=== PATIENT | male | born 1935 | race Caucasian/White ===

== ENCOUNTER → 2019-01-03 | Outpatient (CLI) | payer MEDICARE | END | disposition home or self-care (01) | LOC: RADPETMAIN 08:11 | PROVIDERS: ATTEND Family Medicine | DX: Z53.9 Procedure and treatment not carried out, unspecified reason (principal) ==

== ENCOUNTER 2020-01-19 03:31 | Inpatient (IN) | payer MEDICARE ==
--- NOTE | 2020-01-19 03:38 | ED ---
General Adult HPI - General Stated complaint: Weakness Time Seen by Provider: 01/19/20 03:37 - History of Present Illness Initial comments: Davis is a very pleasant, morbidly obese 84-year-old gentleman with history of hypertension, diabetes and peripheral neuropathy who presents to the ER today for evaluation of generalized weakness and numbness of the bilateral lower extremities. Patient reports he saw his primary care physician last week he was noted to be hypertensive then and his antihypertensive medication doses were increased. Patient reports that since then he's just been feeling somewhat fuzzy lightheaded, very weak. He states that tonight he got up to walk felt very weak his family helped lower him to the ground. They're concerned about his generalized weakness and worsening numbness in the feet which prompted them to call EMS for further evaluation. Patient denies any recent illness, fevers, chills, cough, chest pain. He reports that he can't feel his feet when he is walking and this is what causes this problem. This seems to be worsening recently. - Related Data Home Medications Medication Instructions Recorded Confirmed Aspirin [Adult Low Dose Aspirin EC] 81 mg PO DAILY 06/22/15 06/22/15 Celecoxib [CeleBREX] 200 mg PO DAILY 06/22/15 06/27/15 Ergocalciferol [Vitamin D2] 50,000 unit PO Q7D 06/22/15 06/22/15 Finasteride [Proscar] 5 mg PO DAILY 06/22/15 06/27/15 Omeprazole 40 mg PO AC-BRKFST 06/22/15 06/27/15 Simvastatin [Zocor] 40 mg PO HS 06/22/15 06/27/15 buPROPion HCL [Wellbutrin XL] 150 mg PO DAILY 06/22/15 06/27/15 Allergies Allergy/AdvReac Type Severity Reaction Status Date / Time Penicillins Allergy Anaphylaxis Verified 01/19/20 07:05 Review of Systems ROS Statement: Those systems with pertinent positive or pertinent negative responses have been documented in the HPI. ROS Other: All systems not noted in ROS Statement are negative. Past Medical History Past Medical History: Cancer, GERD/Reflux, Hyperlipidemia, Osteoarthritis (OA) Additional Past Medical History / Comment(s): Skin CA History of Any Multi-Drug Resistant Organisms: None Reported Past Surgical History: Hernia Repair (Hiatal hernia repair), Joint Replacement, Orthopedic Surgery Additional Past Surgical History / Comment(s): EGD Past Anesthesia/Blood Transfusion Reactions: No Reported Reaction Past Alcohol Use History: Rare - Past Family History Mother Family Medical History: No Reported History General Exam - General Exam Comments Initial Comments: Physical Exam GENERAL: Obese male in no acute distress HENT: Normocephalic, Atraumatic. EYES: PERRL, EOMI PULMONARY: Unlabored respirations. No audible rales rhonchi or wheezing was noted. CARDIOVASCULAR: There is a regular rate and rhythm without any murmurs gallops or rubs. ABDOMEN: Obese Soft and nontender with normal bowel sounds. SKIN: Chronic venous stasis lower extremities Chronic ulcer RLE : Buried penis NEUROLOGIC: Patient is alert and oriented to person, place, states its "almost halloween" knows president Moving all extremities spontaneously Decreased sensation bilateral lower extremities MUSCULOSKELETAL: Lower extremity edema PSYCHIATRIC: Normal psychiatric evaluation. Course Vital Signs 01/19/20 01/19/20 01/19/20 03:34 04:00 05:00 Temperature 98.1 F Pulse Rate 98 78 76 Respiratory 18 18 18 Rate Blood Pressure 92/76 128/79 105/65 O2 Sat by Pulse 96 95 95 Oximetry 01/19/20 06:00 Temperature Pulse Rate 79 Respiratory 18 Rate Blood Pressure 130/83 O2 Sat by Pulse 95 Oximetry EKG Findings - EKG Comments: EKG Findings:: EKG was obtained due to complaint of generalized weakness, EKG was obtained at 3:41 AM, rate is 93, rhythm is sinus, normal axis, MO is prolonged at 218, QRS is 94, QTC is 447 there are no acute ST elevations or depressions no evidence of acute ischemia or infarction. Medical Decision Making - Medical Decision Making Patient was seen and evaluated, history is obtained from the patient and EMS 84-year-old gentleman presenting with worsening generalized weakness, peripheral neuropathy reports complete numbness in his feet difficulty walking at home Physical exam is relatively unremarkable this is a morbidly obese male with stocking glove peripheral neuropathy Labs with acute kidney injury, poorly controlled diabetes, mildly elevated lactic acid likely related to patient taking metformin, no signs of infection Discussed with patient options for remaining in the observation unit for evaluation by physical therapy versus discharge home. At this time patient family don't feel he is safe for discharge home and given the patient's morbid obesity and difficulty with ambulation patient will be placed in observation unit. Patient care was discussed with Dr. Butler who agrees with plan for observation - Lab Data Result diagrams: 01/19/20 03:41 01/19/20 04:24 Lab Results 01/19/20 01/19/20 01/19/20 Range/Units 03:41 03:41 03:41 WBC 10.3 (3.8-10.6) k/uL RBC 5.02 (4.30-5.90) m/uL Hgb 15.0 (13.0-17.5) gm/dL Hct 47.1 (39.0-53.0) % MCV 93.7 (80.0-100.0) fL MCH 29.9 (25.0-35.0) pg MCHC 31.9 (31.0-37.0) g/dL RDW 14.7 (11.5-15.5) % Plt Count 228 (150-450) k/uL Neutrophils % 78 % Lymphocytes % 12 % Monocytes % 5 % Eosinophils % 4 % Basophils % 0 % Neutrophils # 8.0 H (1.3-7.7) k/uL Lymphocytes # 1.2 (1.0-4.8) k/uL Monocytes # 0.5 (0-1.0) k/uL Eosinophils # 0.4 (0-0.7) k/uL Basophils # 0.0 (0-0.2) k/uL PT 10.0 (9.0-12.0) sec INR 1.0 (<1.2) APTT 22.7 (22.0-30.0) sec Sodium (137-145) mmol/L Potassium (3.5-5.1) mmol/L Chloride (98-107) mmol/L Carbon Dioxide (22-30) mmol/L Anion Gap mmol/L BUN (9-20) mg/dL Creatinine (0.66-1.25) mg/dL Est GFR (CKD-EPI)AfAm (>60 ml/min/1.73 sqM) Est GFR (CKD-EPI)NonAf (>60 ml/min/1.73 sqM) Glucose (74-99) mg/dL Lactic Ac Sepsis Rflx Plasma Lactic Acid Blaine (0.7-2.0) mmol/L Calcium (8.4-10.2) mg/dL Magnesium (1.6-2.3) mg/dL Total Bilirubin (0.2-1.3) mg/dL AST (17-59) U/L ALT (4-49) U/L Alkaline Phosphatase (38-126) U/L Creatine Kinase (55-170) U/L Troponin I (0.000-0.034) ng/mL Total Protein (6.3-8.2) g/dL Albumin (3.5-5.0) g/dL TSH (0.465-4.680) mIU/L Urine Color Yellow Urine Appearance Clear (Clear) Urine pH 6.0 (5.0-8.0) Ur Specific [place] 1.018 (1.001-1.035) Urine Protein Negative (Negative) Urine Glucose (UA) Negative (Negative) Urine Ketones Negative (Negative) Urine Blood Negative (Negative) Urine Nitrite Negative (Negative) Urine Bilirubin Negative (Negative) Urine Urobilinogen 2.0 (<2.0) mg/dL Ur Leukocyte Esterase Negative (Negative) 01/19/20 01/19/20 01/19/20 Range/Units 03:41 03:41 04:12 WBC (3.8-10.6) k/uL RBC (4.30-5.90) m/uL Hgb (13.0-17.5) gm/dL Hct (39.0-53.0) % MCV (80.0-100.0) fL MCH (25.0-35.0) pg MCHC (31.0-37.0) g/dL RDW (11.5-15.5) % Plt Count (150-450) k/uL Neutrophils % % Lymphocytes % % Monocytes % % Eosinophils % % Basophils % % Neutrophils # (1.3-7.7) k/uL Lymphocytes # (1.0-4.8) k/uL Monocytes # (0-1.0) k/uL Eosinophils # (0-0.7) k/uL Basophils # (0-0.2) k/uL PT (9.0-12.0) sec INR (<1.2) APTT (22.0-30.0) sec Sodium (137-145) mmol/L Potassium (3.5-5.1) mmol/L Chloride (98-107) mmol/L Carbon Dioxide (22-30) mmol/L Anion Gap mmol/L BUN (9-20) mg/dL Creatinine (0.66-1.25) mg/dL Est GFR (CKD-EPI)AfAm (>60 ml/min/1.73 sqM) Est GFR (CKD-EPI)NonAf (>60 ml/min/1.73 sqM) Glucose (74-99) mg/dL Lactic Ac Sepsis Rflx Y Plasma Lactic Acid Blaine 2.9 H* (0.7-2.0) mmol/L Calcium (8.4-10.2) mg/dL Magnesium (1.6-2.3) mg/dL Total Bilirubin (0.2-1.3) mg/dL AST (17-59) U/L ALT (4-49) U/L Alkaline Phosphatase (38-126) U/L Creatine Kinase (55-170) U/L Troponin I <0.012 (0.000-0.034) ng/mL Total Protein (6.3-8.2) g/dL Albumin (3.5-5.0) g/dL TSH (0.465-4.680) mIU/L Urine Color Urine Appearance (Clear) Urine pH (5.0-8.0) Ur Specific [place] (1.001-1.035) Urine Protein (Negative) Urine Glucose (UA) (Negative) Urine Ketones (Negative) Urine Blood (Negative) Urine Nitrite (Negative) Urine Bilirubin (Negative) Urine Urobilinogen (<2.0) mg/dL Ur Leukocyte Esterase (Negative) 01/19/20 Range/Units 04:24 WBC (3.8-10.6) k/uL RBC (4.30-5.90) m/uL Hgb (13.0-17.5) gm/dL Hct (39.0-53.0) % MCV (80.0-100.0) fL MCH (25.0-35.0) pg MCHC (31.0-37.0) g/dL RDW (11.5-15.5) % Plt Count (150-450) k/uL Neutrophils % % Lymphocytes % % Monocytes % % Eosinophils % % Basophils % % Neutrophils # (1.3-7.7) k/uL Lymphocytes # (1.0-4.8) k/uL Monocytes # (0-1.0) k/uL Eosinophils # (0-0.7) k/uL Basophils # (0-0.2) k/uL PT (9.0-12.0) sec INR (<1.2) APTT (22.0-30.0) sec Sodium 133 L (137-145) mmol/L Potassium 4.5 (3.5-5.1) mmol/L Chloride 101 (98-107) mmol/L Carbon Dioxide 22 (22-30) mmol/L Anion Gap 10 mmol/L BUN 17 (9-20) mg/dL Creatinine 1.43 H (0.66-1.25) mg/dL Est GFR (CKD-EPI)AfAm 52 (>60 ml/min/1.73 sqM) Est GFR (CKD-EPI)NonAf 45 (>60 ml/min/1.73 sqM) Glucose 192 H (74-99) mg/dL Lactic Ac Sepsis Rflx Plasma Lactic Acid Blaine (0.7-2.0) mmol/L Calcium 9.1 (8.4-10.2) mg/dL Magnesium 1.9 (1.6-2.3) mg/dL Total Bilirubin 0.7 (0.2-1.3) mg/dL AST 28 (17-59) U/L ALT 17 (4-49) U/L Alkaline Phosphatase 85 (38-126) U/L Creatine Kinase 147 (55-170) U/L Troponin I (0.000-0.034) ng/mL Total Protein 6.7 (6.3-8.2) g/dL Albumin 4.0 (3.5-5.0) g/dL TSH 3.600 (0.465-4.680) mIU/L Urine Color Urine Appearance (Clear) Urine pH (5.0-8.0) Ur Specific [place] (1.001-1.035) Urine Protein (Negative) Urine Glucose (UA) (Negative) Urine Ketones (Negative) Urine Blood (Negative) Urine Nitrite (Negative) Urine Bilirubin (Negative) Urine Urobilinogen (<2.0) mg/dL Ur Leukocyte Esterase (Negative) Disposition Clinical Impression: Hyperglycemia due to type 2 diabetes mellitus, EMILIA (acute kidney injury), Peripheral neuropathy, Generalized weakness Disposition: ADMITTED IP TO THIS HOSP Condition: Stable Is patient prescribed a controlled substance at d/c from ED?: No Referrals: Elle Butler DO [Primary Care Provider] - 1-2 days
[2020-01-19 03:56] LABS: Basophils % (A) 0 %; Eosinophils # (A) 0.4 k/uL (0-0.7); Eosinophils % (A) 4 %; HCT 47.1 % (39.0-53.0); Lymphocytes # (A) 1.2 k/uL (1.0-4.8); Lymphocytes % (A) 12 %; MCH 29.9 pg (25.0-35.0); MCHC 31.9 g/dL (31.0-37.0); MCV 93.7 fL (80.0-100.0); Mean Platelet Volume 7.4; Monocytes # (A) 0.5 k/uL (0-1.0); Monocytes % (A) 5 %; Neutrophils % (A) 78 %; Platelet Count 228 k/uL (150-450); RBC 5.02 m/uL (4.30-5.90); RDW 14.7 % (11.5-15.5); WBC 10.3 k/uL (3.8-10.6)
--- NOTE | 2020-01-19 04:12 | XR ---
EXAM: XR Chest, 2 Views CLINICAL HISTORY: ITS.REASON XR Reason: Weakness TECHNIQUE: Frontal and lateral views of the chest. COMPARISON: No relevant prior studies available. FINDINGS/IMPRESSION: No focal consolidation, pleural effusion, or pneumothorax. Cardiomegaly. Calcified aorta. Severe degenerative changes of the left shoulder.
[2020-01-19 04:21] LABS: Partial Thromboplastin Time 22.7 sec (22.0-30.0)
[2020-01-19 04:49] LABS: Calcium 9.1 mg/dL (8.4-10.2); Magnesium 1.9 mg/dL (1.6-2.3); Potassium 4.5 mmol/L (3.5-5.1); Total Bilirubin 0.7 mg/dL (0.2-1.3); Total Protein 6.7 g/dL (6.3-8.2)
[2020-01-19 06:21] LABS: Appearance,Urine Clear (Clear); Bilirubin,Urine Negative (Negative); Blood,Urine Negative (Negative); Color,Urine Yellow; Glucose,Urine (UA) Negative (Negative); Ketones,Urine Negative (Negative); Leukocyte Esterase,Urine Negative (Negative); Nitrite,Urine Negative (Negative); Protein,Urine Negative (Negative); Specific Gravity,Urine 1.018 (1.001-1.035)
[2020-01-19] MEDS ORDERED: NALOXONE 0.4 MG/ML 1 ML VIAL IV PRN (07:05)
[2020-01-19 08:29] LABS: Glucose,Whole Blood 153 mg/dL (75-99)
[2020-01-19] MEDS: INSULIN ASPART (NovoLOG) 100 UNIT/ML VIAL SQ SCH ×4 (08:33→20:39)
[2020-01-19] MEDS ORDERED: lisinopriL 10 MG TAB PO SCH (09:15)
[2020-01-19] MEDS: ASPIRIN 81 MG PO SCH (09:45)
[2020-01-19] MEDS: PANTOPRAZOLE 40 MG TABLET PO SCH (09:45)
[2020-01-19] MEDS: HEPARIN SODIUM,PORCINE 5,000 UNIT/ML 1 ML VIAL SQ SCH ×2 (09:46→20:39)
[2020-01-19] MEDS: DULoxetine HCL 60 MG CAPSULE.DR PO SCH (09:50)
[2020-01-19] MEDS: GABAPENTIN 300 MG CAP PO SCH ×2 (11:12→20:39)
[2020-01-19 17:03] LABS: Glucose,Whole Blood 110 mg/dL (75-99)
[2020-01-19 18:18] LABS: Folate, Serum 16.1 ng/mL
[2020-01-19 20:21] LABS: Glucose,Whole Blood 204 mg/dL (75-99)
[2020-01-19] MEDS: ATORVASTATIN 20 MG TAB PO SCH (20:39)
--- NOTE | 2020-01-19 23:37 | P.HPIM ---
History of Present Illness H&P Date: 01/19/20 Chief Complaint: weakness Davis Wilde is an 84 yo M with PMH of T2DM, HTN, HLD who presented to [facility] [place] with worsening bilateral leg numbness and weakness. He reports he has been experiencing gradual and worsening lower extremity weakness but last week after his BP medications were adjusted his symptoms worsened. He feels his upper extremity strength is also diminished. He has not been able to ambulate as he cannot feel his feet and does not use any mobility aids at home. On presentation his vitals were stable, labs with Cr 1.4, glucose 190, CXR and EKG clear. Review of Systems All systems: negative Constitutional: Denies chills, Denies fever Eyes: denies blurred vision, denies pain Ears, nose, mouth and throat: Denies headache, Denies sore throat Cardiovascular: Denies chest pain, Denies shortness of breath Respiratory: Denies cough Gastrointestinal: Denies abdominal pain, Denies diarrhea, Denies nausea, Denies vomiting Musculoskeletal: Denies myalgias Integumentary: Denies pruritus, Denies rash Neurological: Reports numbness, Reports paresthesias, Reports weakness Psychiatric: Denies anxiety, Denies depression Endocrine: Denies fatigue, Denies weight change Past Medical History Past Medical History: Cancer, Diabetes Mellitus, GERD/Reflux, Hyperlipidemia, Hypertension, Osteoarthritis (OA), Prostate Disorder Additional Past Medical History / Comment(s): Recent UTI completed antibiotic, past UTIs, nephrolithiasis/pt passed stones on his own, BPH, skin CA with removals, NIDDM type II, neuropathy in feet recently diagnosed, arthritis in multiple joints/pinched nerve R shoulder with R arm limited ROM, benign colon polyps. History of Any Multi-Drug Resistant Organisms: None Reported Past Surgical History: Hernia Repair, Joint Replacement, Orthopedic Surgery Additional Past Surgical History / Comment(s): EGD, colonoscopies with benign polyps, multiple skin cancer removals, hiatal hernia repair, bilateral total knee arthroplasties, total R hip arthroplasty, bilateral cataract removals/lens implants. Past Anesthesia/Blood Transfusion Reactions: No Reported Reaction Smoking Status: Never smoker - Past Family History Mother Family Medical History: No Reported History Additional Family Medical History / Comment(s): Mother was healthy and lived to be 94 yrs old. Father Family Medical History: COPD Additional Family Medical History / Comment(s): Father at the age of 75 yrs of COPD. He was a smoker. Medications and Allergies Home Medications Medication Instructions Recorded Confirmed Type Aspirin [Adult Low Dose Aspirin EC] 81 mg PO DAILY 06/22/15 01/19/20 History Ergocalciferol [Vitamin D2] 50,000 unit PO WE 06/22/15 01/19/20 History Finasteride [Proscar] 5 mg PO DAILY 06/22/15 01/19/20 History Omeprazole 40 mg PO AC-BRKFST 06/22/15 01/19/20 History Simvastatin [Zocor] 40 mg PO HS 06/22/15 01/19/20 History buPROPion HCL [Wellbutrin XL] 150 mg PO DAILY 06/22/15 01/19/20 History Clotrimazole/Betameth Cream 1 applic TOPICAL DAILY 01/19/20 01/19/20 History [Lotrisone] DULoxetine HCL [Cymbalta] 60 mg PO DAILY 01/19/20 01/19/20 History Ipratropium Ware 0.06%Nasal 1 spray EA NOSTRIL DAILY 01/19/20 01/19/20 History [Atrovent Nasal 0.06%] Lisinopril [Prinivil] 10 mg PO DAILY 01/19/20 01/19/20 History Repaglinide [Prandin] 2 mg PO TID 01/19/20 01/19/20 History SILVER sulfADIAZINE Cream 1 applic TOPICAL DAILY 01/19/20 01/19/20 History [Silvadene 1% Cream] Sulfamethox-Tmp 800-160Mg [Bactrim 1 tab PO Q12HR 01/19/20 01/19/20 History DS 800-160 mg] sitaGLIPtin [Januvia] 50 mg PO DAILY 01/19/20 01/19/20 History traMADol HCL [Ultram] 50 mg PO Q6H PRN 01/19/20 01/19/20 History Allergies Allergy/AdvReac Type Severity Reaction Status Date / Time Penicillins Allergy Anaphylaxis Verified 01/19/20 07:05 Physical Exam Vitals: Vital Signs Temp Pulse Pulse Resp BP BP BP 01/19/20 20:28 98.1 F 84 18 116/60 01/19/20 12:56 97.6 F 76 18 122/73 10/20/20 11:30 80 17 119/61 20/20 11:00 80 16 20 10:30 84 16 100/58 20/20 10:00 80 16 120/78 20/20 09:53 86 18 120/78 20/20 09:30 94 16 105/80 20/20 09:00 77 16 123/67 20/20 08:30 75 16 128/74 20/20 08:15 98.7 F 78 18 128/74 20/20 08:00 76 16 133/75 01/18/20 07:30 81 16 109/82 20 06:00 79 18 130/83 20 05:00 76 18 105/65 20 04:00 78 18 128/79 20 03:34 98.1 F 98 18 92/76 Pulse Ox 01/19/20 20:28 95 01/19/20 12:56 97 20 11:30 98 20 11:00 97 20 10:30 96 20 10:00 96 20 09:53 97 20 09:30 97 20 09:00 99 20 08:30 97 20 08:15 96 20 08:00 96 01/18/20 07:30 97 20/20 06:00 95 01/18/20 05:00 95 20 04:00 95 20 03:34 96 Intake and Output 01/19/2020/20 01/20/20 14:59 22:59 06:59 Intake Total 270 Balance 270 Intake: Oral 270 Other: Voiding Method Urinal # Voids 1 Weight 122.47 kg General: well nourished, well developed, NAD. Vitals reviewed Eyes: PERRL, EOMI, conjunctiva normal HENT: normocephalic, mucus membranes moist Neck: supple, no JVD Lungs: normal respiratory effort, no wheezes or rales CV: Regular rate and rhythm, no murmur. Peripheral pulses 2+ Abdomen: soft, nondistended, no organomegaly Lymph: no cervical or axillary LAD Skin: warm and dry. Neuro: A&Ox3, normal mood and affect. Bilateral LE with 3/5 str hip flexion, 4/5 plantarflexion, 5/5 dorsiflexoin. Screw Machine Hand strength 5/5 Results CBC & Chem 7: 01/19/20 03:41 01/19/20 04:24 Labs: Abnormal Lab Results - Last 24 Hours (Table) 01/19/20 01/19/20 01/19/20 Range/Units 03:41 03:41 04:24 Neutrophils # 8.0 H (1.3-7.7) k/uL Sodium 133 L (137-145) mmol/L Creatinine 1.43 H (0.66-1.25) mg/dL Glucose 192 H (74-99) mg/dL POC Glucose (mg/dL) (75-99) mg/dL Plasma Lactic Acid Blaine 2.9 H* (0.7-2.0) mmol/L 01/19/20 01/19/20 01/19/20 Range/Units 08:28 17:02 20:20 Neutrophils # (1.3-7.7) k/uL Sodium (137-145) mmol/L Creatinine (0.66-1.25) mg/dL Glucose (74-99) mg/dL POC Glucose (mg/dL) 153 H 110 H 204 H (75-99) mg/dL Plasma Lactic Acid Blaine (0.7-2.0) mmol/L Thrombosis Risk Factor Assmnt - Choose All That Apply Any of the Below Risk Factors Present?: Yes Each Factor Represents 1 point: Obesity (BMI >25) Other Risk Factors: Yes Each Risk Factor Represents 2 Points: Malignancy Each Risk Factor Represents 3 Points: Age 75 years or older Other congenital or acquired thrombophilia - If yes, enter type in comment: No Thrombosis Risk Factor Assessment Total Risk Factor Score: 6 Thrombosis Risk Factor Assessment Level: High Risk Assessment and Plan (1) EMILIA (acute kidney injury) Current Visit: Yes Status: Acute Code(s): N17.9 - ACUTE KIDNEY FAILURE, UNSPECIFIED SNOMED Code(s): 98626860 (2) Generalized weakness Current Visit: Yes Status: Acute Code(s): R53.1 - WEAKNESS SNOMED Code(s): 64496960 (3) Hyperglycemia due to type 2 diabetes mellitus Current Visit: Yes Status: Acute Code(s): E11.65 - TYPE 2 DIABETES MELLITUS WITH HYPERGLYCEMIA SNOMED Code(s): 154097377667375 (4) Peripheral neuropathy Current Visit: Yes Status: Acute Code(s): G62.9 - POLYNEUROPATHY, UNSPECIFIED SNOMED Code(s): 977738100 Plan: 1. EMILIA. Baseline cr 1.0, likely secondary to prolonged immobility Start IV fluids, hold lisinopril. Follow renal function 2. Lower extremity neuropathy, likely diabetic. Start gabapentin, check TSH, GUY, B12, folate 3. HTN. Hold lisinopril 4. T2DM. Accucheck, sliding scale 5. Generalized weakness. PT to evaluate
[2020-01-20] MEDS: SODIUM CHLORIDE 0.9% 1,000 ML IV SCH ×3 (00:01→17:22)
[2020-01-20 07:14] LABS: Glucose,Whole Blood 142 mg/dL (75-99)
[2020-01-20] MEDS: PANTOPRAZOLE 40 MG TABLET PO SCH (08:10)
[2020-01-20] MEDS: ASPIRIN 81 MG PO SCH (08:10)
[2020-01-20] MEDS: FINASTERIDE 5 MG TAB PO SCH (08:10)
[2020-01-20] MEDS: DULoxetine HCL 60 MG CAPSULE.DR PO SCH (08:11)
[2020-01-20] MEDS: GABAPENTIN 300 MG CAP PO SCH ×2 (08:11→20:52)
[2020-01-20] MEDS: INSULIN ASPART (NovoLOG) 100 UNIT/ML VIAL SQ SCH ×4 (08:11→20:52)
[2020-01-20] MEDS: HEPARIN SODIUM,PORCINE 5,000 UNIT/ML 1 ML VIAL SQ SCH ×2 (08:11→20:52)
[2020-01-20 09:28] LABS: African American GFR (CKD) 48.8 (60.0-200.0); Anion Gap 13.4 mmol/L (4.00-12.00); BUN/Creat Ratio 14.67 Ratio (12.00-20.00); Calcium 9.3 mg/dL (8.7-10.3); Carbon Dioxide 19.6 mmol/L (21.6-31.8); Non-African American GFR(CKD) 42.1 (60.0-200.0); Potassium 4.6 mmol/L (3.5-5.5)
[2020-01-20 11:35] LABS: Glucose,Whole Blood 181 mg/dL (75-99)
--- NOTE | 2020-01-20 12:25 | P.PN ---
Subjective Progress Note Date: 01/20/20 Davis Wilde is an 84 yo M with PMH of T2DM, HTN, HLD who presented to [facility] with worsening bilateral leg numbness and weakness. He reports he has been experiencing gradual and worsening lower extremity weakness but last week after his BP medications were adjusted his symptoms worsened. He feels his upper extremity strength is also diminished. He has not been able to ambulate as he cannot feel his feet and does not use any mobility aids at home. On presentation his vitals were stable, labs with Cr 1.4, glucose 190, CXR and EKG clear. 01/20/2020 gabapentin added to med regimen yesterday with minimal improvement reported in neuropathy today. Reports this on going weakness has been present for approximately one month. Unable to hold cup or utensils up. Continues on IV fluid hydration, creatinine 1.5. Vague historian, reports urinary retention, possible stricture, suspect BPH? Required straight cath during the night, currently voiding well. Objective - Vital Signs Vital signs: Vital Signs Temp 97.7 F 01/20/20 05:00 Pulse 80 01/20/20 05:00 Resp 14 01/20/20 05:00 BP 132/84 01/20/20 05:00 Pulse Ox 97 01/20/20 05:00 Intake & Output 01/19/20 01/20/20 01/20/20 18:59 06:59 18:59 Intake Total 1050 Balance 1050 Weight 122.47 kg Intake: Intake, IV Titration 780 Amount Sodium Chloride 0.9% 1, 780 000 ml @ 130 mls/hr IV . Q7H42M [facility] Rx#:[id number] Oral 270 Other: Voiding Method Urinal # Voids 1 1 - Exam General: well nourished, well developed, NAD. Vitals reviewed Eyes: PERRL, EOMI, conjunctiva normal HENT: normocephalic, mucus membranes moist Neck: supple, no JVD Lungs: normal respiratory effort, no wheezes or rales CV: Regular rate and rhythm, no murmur. Peripheral pulses 2+ Abdomen: soft, nondistended, no organomegaly, positive bowel sounds Skin: warm and dry. Neuro: A&Ox3, normal mood and affect. Bilateral LE with 3/5 str hip flexion, 4/5 plantarflexion, 5/5 dorsiflexoin. [employer] strength 5/5 - Labs CBC & Chem 7: 01/19/20 03:41 01/20/20 04:23 Labs: Abnormal Lab Results - Last 24 Hours (Table) 01/19/20 01/19/20 01/20/20 Range/Units 17:02 20:20 04:23 Carbon Dioxide 19.6 L (21.6-31.8) mmol/L Anion Gap 13.40 H (4.00-12.00) mmol/L Est GFR (CKD-EPI)AfAm 48.8 L (60.0-200.0) Est GFR (CKD-EPI)NonAf 42.1 L (60.0-200.0) Glucose 154 H (70-110) mg/dL POC Glucose (mg/dL) 110 H 204 H (75-99) mg/dL 01/20/20 Range/Units 06:59 Carbon Dioxide (21.6-31.8) mmol/L Anion Gap (4.00-12.00) mmol/L Est GFR (CKD-EPI)AfAm (60.0-200.0) Est GFR (CKD-EPI)NonAf (60.0-200.0) Glucose (70-110) mg/dL POC Glucose (mg/dL) 142 H (75-99) mg/dL Assessment and Plan Assessment: Acute kidney injury, secondary to dehydration from prolonged immobility Generalized weakness with possible diabetic neuropathy Hypertension Diabetes mellitus type 2 Peripheral neuropathy Plan: Continue on current medication regime ,monitoring and symptomatic treatment. Maintain IV fluid hydration with close monitoring of renal function, electrolytes. Repeat labs ordered for a.m. Evaluated by a PT was subacute rehab recommended at discharge. Social work consulted. Neurology consulted r egarding generalized weakness, neuropathy. The impression and plan of care has been dictated as directed. : I performed a history and examination of this patient, discussed the same with the dictator. I agree with the dictator's note ,documented as a scribe. Any additional findings or plans will be noted.
--- NOTE | 2020-01-20 15:01 | XR ---
EXAMINATION TYPE: XR orbit pre-MRI foreign body DATE OF EXAM: 01/20/2020 COMPARISON: NONE HISTORY: Pre-MRI orbit. Penetrating eye injury history. TECHNIQUE: Complete orbits with Rodriguez and Win frontal view and lateral projection. FINDINGS: No metallic intraorbital foreign body seen to prevent MRI study. IMPRESSION: As above.
--- NOTE | 2020-01-20 15:47 | P.CNNES ---
History of Present Illness Consult date: 01/20/20 Requesting physician: Izzy Rosario Reason for Consult: Neuropathy History of Present Illness: Patient is a 84-year-old male came to the hospital by ambulance yesterday at 3:31 AM for worsening bilateral leg numbness and weakness. Patient states that he used to fall very occasionally, but in the last 2 weeks, he has fell 3 times. The first time his son and were able to get him up but the other 2 times they could not get him up and EMT were called. Once he falls, he cannot get up. In the past 1 month he has developed numbness of the feet, as if there is foam rubber around his feet to the ankles. In the last 1 month he has also developed weakness of the hands, as if they're swollen. The symptoms involved from fingertips up to the wrist bilaterally. He cannot nut picker small objects with difficulty hand dexterity. He has shoulder and right neck pain also. Patient denies any problem with leaking of urine. Vital signs on arrival was blood pressure 92/76, pulse rate 90 temperature 98.1. Chest x-ray showed no focal consolidation, pleural effusion or pneumothorax. Cardiomegaly. Severe degenerative changes of the left shoulder. EKG shows sinus rhythm with first-degree AV block. Premature atrial complexes. Patient's CBC, CMP is normal. BUN 22, creatinine 1.5, B12 562, folate 16.1, TSH 3.6 CK 147. UA is negative. GUY negative. Patient has history of diabetes for 5 years. Denies any tobacco use. Patient states that when he looks up or down, gets dizzy. Review of Systems Complains of neck pain, right shoulder pain. Patient gets dizzy with moving head up or down. Denies any problem with vision, hoarseness, sore throat or dysphagia. Denies any double vision, loss of vision. Complains of numbness, weakness, gait problems as mentioned above in HPI. Denies any anxiety or depression. Denies any chest pain shortness of breath, wheezing or cough. D enies any abdominal pain nausea vomiting diarrhea. All other review of systems unremarkable. Patient does have multiple bruises on his skin. Past Medical History Past Medical History: Cancer, Diabetes Mellitus, GERD/Reflux, Hyperlipidemia, Hypertension, Osteoarthritis (OA), Prostate Disorder Additional Past Medical History / Comment(s): Recent UTI completed antibiotic, past UTIs, nephrolithiasis/pt passed stones on his own, BPH, skin CA with removals, NIDDM type II, neuropathy in feet recently diagnosed, arthritis in multiple joints/pinched nerve R shoulder with R arm limited ROM, benign colon polyps. History of Any Multi-Drug Resistant Organisms: None Reported Past Surgical History: Hernia Repair, Joint Replacement, Orthopedic Surgery Additional Past Surgical History / Comment(s): EGD, colonoscopies with benign polyps, multiple skin cancer removals, hiatal hernia repair, bilateral total knee arthroplasties, total R hip arthroplasty, bilateral cataract removals/lens implants. Past Anesthesia/Blood Transfusion Reactions: No Reported Reaction Smoking Status: Never smoker - Past Family History Mother Family Medical History: No Reported History Additional Family Medical History / Comment(s): Mother was healthy and lived to be 94 yrs old. Father Family Medical History: COPD Additional Family Medical History / Comment(s): Father at the age of 75 yrs of COPD. He was a smoker. Medications and Allergies Home Medications Medication Instructions Recorded Confirmed Type Aspirin [Adult Low Dose Aspirin EC] 81 mg PO DAILY 06/22/15 01/19/20 History Ergocalciferol [Vitamin D2] 50,000 unit PO WE 06/22/15 01/19/20 History Finasteride [Proscar] 5 mg PO DAILY 06/22/15 01/19/20 History Omeprazole 40 mg PO AC-BRKFST 06/22/15 01/19/20 History Simvastatin [Zocor] 40 mg PO HS 06/22/15 01/19/20 History buPROPion HCL [Wellbutrin XL] 150 mg PO DAILY 06/22/15 01/19/20 History Clotrimazole/Betameth Cream 1 applic TOPICAL DAILY 01/19/20 01/19/20 History [Lotrisone] DULoxetine HCL [Cymbalta] 60 mg PO DAILY 01/19/20 01/19/20 History Ipratropium [place] 0.06%Nasal 1 spray EA NOSTRIL DAILY 01/19/20 01/19/20 History [Atrovent Nasal 0.06%] Lisinopril [Prinivil] 10 mg PO DAILY 01/19/20 01/19/20 History Repaglinide [Prandin] 2 mg PO TID 01/19/20 01/19/20 History SILVER sulfADIAZINE Cream 1 applic TOPICAL DAILY 01/19/20 01/19/20 History [Silvadene 1% Cream] Sulfamethox-Tmp 800-160Mg [Bactrim 1 tab PO Q12HR 01/19/20 01/19/20 History DS 800-160 mg] sitaGLIPtin [Januvia] 50 mg PO DAILY 01/19/20 01/19/20 History traMADol HCL [Ultram] 50 mg PO Q6H PRN 01/19/20 01/19/20 History Allergies Allergy/AdvReac Type Severity Reaction Status Date / Time Penicillins Allergy Anaphylaxis Verified 01/19/20 07:05 Physical Examination - Vital Signs Vital Signs: Vital Signs Temp Pulse Pulse Resp BP BP BP 01/20/20 05:00 97.7 F 80 14 132/84 01/19/20 20:28 98.1 F 84 18 116/60 01/19/20 12:56 97.6 F 76 18 122/73 01/19/20 11:30 80 17 119/61 Pulse Ox 01/20/20 05:00 97 01/19/20 20:28 95 01/19/20 12:56 97 01/19/20 11:30 98 Intake and Output 01/19/20 01/20/20 01/20/20 22:59 06:59 14:59 Intake Total 270 780 200 Balance 270 780 200 Intake: Intake, IV Titration 780 Amount Sodium Chloride 0.9% 1, 780 000 ml @ 130 mls/hr IV . Q7H42M [facility] Rx#:[id number] Oral 270 200 Other: Voiding Method Urinal # Voids 1 On examination patient is an elderly male, in no acute distress. He is alert and awake oriented to time place and person. Speech and language functions are normal. Attention, concentration and fund of knowledge is adequate. On cranial nerve examination pupils are round and reacting to light, visual alvarenga are full on confrontation, extraocular muscles are intact with no nystagmus. Face is symmetric, tongue protrudes the midline. Palatal elevation and sensation normal. Hearing and shoulder shrug normal. Facial sensation normal. On muscle strength testing (right/left) deltoid 2-3/4, biceps 5-/5, triceps 2/4+5-, asphalt tar and gravel roofer 3+4-/4-, finger extension 2/2-3. In the lower extremities hip flexion is 3+/4+. Hip adduction, abduction, knee extension, ankle dorsiflexion and toe extension are all normal 5/5 bilaterally. Reflexes are trace in the upper limbs, 2+ at the knees, absent ankles and plantars are probable upgoing bilaterally. Sensory touch is decreased in the hands and feet. Patient has decreased dexterity of both hands. Tone and bulk of muscles normal. No ataxia for [id number] testing. Gait deferred. On general examination, there is no carotid bruit or murmur, peripheral pulses are present. No peripheral edema. Chest is clear, abdomen soft nontender. Patient has multiple bruises. Results - Laboratory Findings CBC and BMP: 01/19/20 03:41 01/20/20 04:23 Abnormal Lab Findings: Abnormal Labs 01/19/20 01/19/20 01/19/20 03:41 03:41 04:24 Neutrophils # 8.0 H Sodium 133 L Carbon Dioxide Anion Gap Creatinine 1.43 H Est GFR (CKD-EPI)AfAm Est GFR (CKD-EPI)NonAf Glucose 192 H POC Glucose (mg/dL) Plasma Lactic Acid [place] 2.9 H* 01/19/20 01/19/20 01/19/20 08:28 17:02 20:20 Neutrophils # Sodium Carbon Dioxide Anion Gap Creatinine Est GFR (CKD-EPI)AfAm Est GFR (CKD-EPI)NonAf Glucose POC Glucose (mg/dL) 153 H 110 H 204 H Plasma Lactic Acid [place] 01/20/20 01/20/20 04:23 06:59 Neutrophils # Sodium Carbon Dioxide 19.6 L Anion Gap 13.40 H Creatinine Est GFR (CKD-EPI)AfAm 48.8 L Est GFR (CKD-EPI)NonAf 42.1 L Glucose 154 H POC Glucose (mg/dL) 142 H Plasma Lactic Acid [place] Assessment and Plan Assessment: * 84-year-old male with a 3 week history of progressive gait imbalance, frequent falls, weakness of bilateral upper > lower limbs, and numbness and tingling of hands and feet. Patient has bilateral Babinski. Rule out cervical spinal stenosis with cord compression. Rule out polyneuropathy. * Diabetes Plan: * Stat MRI of the cervical spine to evaluate for spinal stenosis, rule out cord compression. * Patient's B12 is normal. We will check hemoglobin A1c, immune fixation electrophoresis, serum protein electrophoresis, and B6 level. * Neurology will follow.
--- NOTE | 2020-01-20 16:01 | MR ---
EXAMINATION TYPE: MR cervical spine wo con DATE OF EXAM: 01/20/2020 COMPARISON: None HISTORY: Weakness, frequent falls TECHNIQUE: Multiplanar, multisequence images of the cervical spine were acquired. C2-C3: No evidence for degenerative disc disease. No disc bulge/herniation or protrusion. No Canal stenosis. Foramina are patent bilaterally. C3-C4: Posterior broad-based disc bulge causes mild anterior mass effect on the thecal sac. Bilateral foraminal encroachment is present due to uncovertebral joint hypertrophy and facet arthropathy. C4-C5: Posterior broad-based disc bulge, extension of endplate disc complex results in severe spinal stenosis, there is bilateral foraminal encroachment. C5-C6: Posterior broad-based disc herniation, posterior extension endplate disc complex causes anteri or mass effect on the cervical cord, there is severe spinal stenosis, bilateral foraminal encroachmen t. C6-C7: Posterior broad-based disc bulge contacts the anterior cervical cord, there is moderate spinal stenosis. Uncovertebral joint hypertrophy contributes to cause bilateral foraminal encroachment. C7-T1: Minimal anterolisthesis grade 1 contributes to encroach on the neural foramina. No disc hernia tion or spinal stenosis. Cervical segments are intact. There is multilevel spondylosis. Cervical vertebral bodies show preserv ed height and alignment. Endplate discogenic marrow signal changes are present, there is associated l oss of disc height signal at intervertebral levels. T2-3 levels show ankylosis noted incidentally. Th ere is T2 bright signal within the cervical cord at C4-5 and C5-6 with associated loss of cord volume consistent with myelomalacia. Multilevel facet arthropathy changes are present. Arthropathy is prese nt at C1 to, there is soft tissue pannus formation. There is a partially empty sella. Cortical atroph y noted incidentally, periventricular white matter shows some patchy increased signal on T2 images. IMPRESSION: Severe degenerative disc disease and spinal stenosis, multilevel foraminal encroachment. Myelomalacia within the cervical spinal cord. Additional findings above.
[2020-01-20 17:25] LABS: Glucose,Whole Blood 136 mg/dL (75-99)
[2020-01-20] MEDS: TAMSULOSIN 0.4 MG CAP.ER.24H PO SCH (17:48)
[2020-01-20] MEDS: ATORVASTATIN 20 MG TAB PO SCH (20:52)
[2020-01-20 21:05] LABS: Glucose,Whole Blood 190 mg/dL (75-99)
[2020-01-21] MEDS: SODIUM CHLORIDE 0.9% 1,000 ML IV SCH ×4 (06:02→18:20)
[2020-01-21 06:08] LABS: Basophils % (A) 1 %; Eosinophils # (A) 0.3 k/uL (0-0.7); Eosinophils % (A) 6 %; HCT 41.9 % (39.0-53.0); HGB 13.1 gm/dL (13.0-17.5); Lymphocytes % (A) 20 %; MCH 29.3 pg (25.0-35.0); MCHC 31.4 g/dL (31.0-37.0); MCV 93.4 fL (80.0-100.0); Mean Platelet Volume 6.9; Monocytes # (A) 0.4 k/uL (0-1.0); Monocytes % (A) 8 %; Neutrophils # (A) 3.2 k/uL (1.3-7.7); Neutrophils % (A) 65 %; Platelet Count 178 k/uL (150-450); RBC 4.48 m/uL (4.30-5.90); RDW 14.6 % (11.5-15.5); WBC 4.9 k/uL (3.8-10.6)
[2020-01-21 07:07] LABS: Glucose,Whole Blood 143 mg/dL (75-99)
[2020-01-21] MEDS: HEPARIN SODIUM,PORCINE 5,000 UNIT/ML 1 ML VIAL SQ SCH ×2 (08:03→21:23)
[2020-01-21] MEDS: PANTOPRAZOLE 40 MG TABLET PO SCH (08:03)
[2020-01-21] MEDS: DULoxetine HCL 60 MG CAPSULE.DR PO SCH (08:03)
[2020-01-21] MEDS: FINASTERIDE 5 MG TAB PO SCH (08:03)
[2020-01-21] MEDS: INSULIN ASPART (NovoLOG) 100 UNIT/ML VIAL SQ SCH ×4 (08:03→21:23)
[2020-01-21] MEDS: GABAPENTIN 300 MG CAP PO SCH ×2 (08:03→21:23)
[2020-01-21] MEDS: ASPIRIN 81 MG PO SCH (08:03)
--- NOTE | 2020-01-21 08:34 | P.CNOR ---
History of Present Illness - [facility] Consult date: 01/21/20 Consult reason: other History of present illness: Patient is a pleasant 84-year-old male who we're asked to see in regards to his cervical stenosis and weakness with multiple falls. He was seen and examined today at bedside. He says that over the past couple of months he's been having issues with his strength and his hands as well as his strength in his bilateral lower extremities.. He has fallen multiple times and feels it is getting worse. He has had significant decreased ability to mobilize and ambulate. He denies any specific incident or trauma. He says that he has some soreness at his neck chronically but did not have any specific issue with his cervical spine in the past. He feels that his arms are weak bilaterally and that he walks on cushions when he tries to move around. 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 He is unsure how long to been going on but he feels that he has noticed it significantly over the past 1-2 months. Review of Systems He admits to dizziness and weakness in his bilateral upper extremities. He admits to clumsiness with his legs. He admits to decreased dexterity in his hands and fingers. He denies any fevers chills. Denies any changes bowel bladder function. He says that he feels weak all over. He has increased symptoms when he extends and moves his neck. Past Medical History Past Medical History: Cancer, Diabetes Mellitus, GERD/Reflux, Hyperlipidemia, Hypertension, Osteoarthritis (OA), Prostate Disorder Additional Past Medical History / Comment(s): Recent UTI completed antibiotic, past UTIs, nephrolithiasis/pt passed stones on his own, BPH, skin CA with removals, NIDDM type II, neuropathy in feet recently diagnosed, arthritis in multiple joints/pinched nerve R shoulder with R arm limited ROM, benign colon polyps. History of Any Multi-Drug Resistant Organisms: None Reported Past Surgical History: Hernia Repair, Joint Replacement, Orthopedic Surgery Additional Past Surgical History / Comment(s): EGD, colonoscopies with benign polyps, multiple skin cancer removals, hiatal hernia repair, bilateral total knee arthroplasties, total R hip arthroplasty, bilateral cataract removals/lens implants. Past Anesthesia/Blood Transfusion Reactions: No Reported Reaction Smoking Status: Never smoker - Past Family History Mother Family Medical History: No Reported History Additional Family Medical History / Comment(s): Mother was healthy and lived to be 94 yrs old. Father Family Medical History: COPD Additional Family Medical History / Comment(s): Father at the age of 75 yrs of COPD. He was a smoker. Medications and Allergies Home Medications Medication Instructions Recorded Confirmed Type Aspirin [Adult Low Dose Aspirin EC] 81 mg PO DAILY 06/22/15 01/19/20 History Ergocalciferol [Vitamin D2] 50,000 unit PO WE 06/22/15 01/19/20 History Finasteride [Proscar] 5 mg PO DAILY 06/22/15 01/19/20 History Omeprazole 40 mg PO AC-BRKFST 06/22/15 01/19/20 History Simvastatin [Zocor] 40 mg PO HS 06/22/15 01/19/20 History buPROPion HCL [Wellbutrin XL] 150 mg PO DAILY 06/22/15 01/19/20 History Clotrimazole/Betameth Cream 1 applic TOPICAL DAILY 01/19/20 01/19/20 History [Lotrisone] DULoxetine HCL [Cymbalta] 60 mg PO DAILY 01/19/20 01/19/20 History Ipratropium [place] 0.06%Nasal 1 spray EA NOSTRIL DAILY 01/19/20 01/19/20 History [Atrovent Nasal 0.06%] Lisinopril [Prinivil] 10 mg PO DAILY 01/19/20 01/19/20 History Repaglinide [Prandin] 2 mg PO TID 01/19/20 01/19/20 History SILVER sulfADIAZINE Cream 1 applic TOPICAL DAILY 01/19/20 01/19/20 History [Silvadene 1% Cream] Sulfamethox-Tmp 800-160Mg [Bactrim 1 tab PO Q12HR 01/19/20 01/19/20 History DS 800-160 mg] sitaGLIPtin [Januvia] 50 mg PO DAILY 01/19/20 01/19/20 History traMADol HCL [Ultram] 50 mg PO Q6H PRN 01/19/20 01/19/20 History Allergies Allergy/AdvReac Type Severity Reaction Status Date / Time Penicillins Allergy Anaphylaxis Verified 01/19/20 07:05 Physical Examination Osteopathic Statement: *. No significant issues noted on an osteopathic structural exam other than those noted in the History and Physical/Consult. - C Spine: dermatomal strength & reflexes bilateral Shoulder strength: flexion: 3/5 (His neck is nontender to palpation. He has positive Spurling signs. He has weakness in his bilateral upper extremity somewhat globally with outside plant technician wrist flexion and extension biceps and triceps.) Wrist strength: extension: 3/5 (He has weakness with finger extension grasps thumb extension and wrist flexion and extension. He has some weakness bilateral lower extremities globally. But he is able to flex and extend his ankles and knees) Results - Labs Labs: Abnormal Lab Results - Last 24 Hours (Table) 01/20/20 01/20/20 01/20/20 Range/Units 04:23 11:21 17:22 Carbon Dioxide 19.6 L (21.6-31.8) mmol/L Anion Gap 13.40 H (4.00-12.00) mmol/L Est GFR (CKD-EPI)AfAm 48.8 L (60.0-200.0) Est GFR (CKD-EPI)NonAf 42.1 L (60.0-200.0) Glucose 154 H (70-110) mg/dL POC Glucose (mg/dL) 181 H 136 H (75-99) mg/dL 01/20/20 01/21/20 Range/Units 20:45 07:05 Carbon Dioxide (21.6-31.8) mmol/L Anion Gap (4.00-12.00) mmol/L Est GFR (CKD-EPI)AfAm (60.0-200.0) Est GFR (CKD-EPI)NonAf (60.0-200.0) Glucose (70-110) mg/dL POC Glucose (mg/dL) 190 H 143 H (75-99) mg/dL H & H 01/19/20 01/21/20 Range/Units 03:41 05:50 Hgb 15.0 13.1 (13.0-17.5) gm/dL Hct 47.1 41.9 (39.0-53.0) % Coagulation 01/19/20 Range/Units 03:41 INR 1.0 (<1.2) Result Diagrams: 01/21/20 05:50 01/20/20 04:23 - Diagnostic results Cervical MRI with contrast: report reviewed, image reviewed (His cervical spine MRI is reviewed. He has significant disc degeneration at C4 5 C5 6 C6 7. There is severe stenosis C4 5 C5 6 with evidence of myelomalacia at his cervical spine and signal change within the cord.) Assessment and Plan Assessment: Cervical myelopathy with upper and lower extremity weakness Cervical myelomalacia C4 5 C5 6 Severe cervical stenosis C4 5 C5 6 Degenerative disc disease C4 5 C5 6 C6 7 Multiple falls and decreased dexterity due to cervical myelopathy Diabetes Plan: Cervical myelopathy with upper and lower extremity weakness Cervical myelomalacia C4 5 C5 6 Severe cervical stenosis C4 5 C5 6 Degenerative disc disease C4 5 C5 6 C6 7 Multiple falls and decreased dexterity due to cervical myelopathy Diabetes The patient has a number of medical issues but his symptoms of weakness and balance changes likely stem a large part due to his cervical myelopathy. He has severe cervical stenosis at C4 5 and C5 6 with significant myelomalacia. He is experiencing some central cord syndrome as well. He has had multiple falls and is having worsening of his symptoms. I appreciate the input from medicine as well as neurology. I think he would be worthwhile to start him on IV steroids to see if he can alleviate some the swelling at his cervical spine and improved some of function in his extremities. With the patient's severe cervical stenosis and myelomalacia with neurologic change I think that he should undergo surgery for his cervical spine. His stenosis primarily focused at C4 5 and C5 6 and I would plan anterior cervical decompression with discectomy at C4 5 C5 6. I think that surgery would offer him the best chance of regaining some of his function and halting the progression of his symptoms and neurologic change. I discussed this with him and he will discuss it further with his family. We can plan for possibly of surgery as early as tomorrow or Saturday if patient wishes to proceed. I discussed the risk of occasions alternatives and benefits with him including but not limited to the risk of bleeding risk of infection risk and need for further surgery risk of decreased loss of motion loss of function malunion nonunion hardware failure risks of the anesthesia well explained to him. Patient understands that he is of advanced age and he has significant neurologic change and it is difficult to predict the amount of recovery that his nervous system can make. He is interested in pursuing surgical intervention.
[2020-01-21 09:06] LABS: Protein, Total 5.7 g/dL (6.2-8.2)
[2020-01-21 09:08] LABS: Anion Gap 5.4 mmol/L (4.00-12.00); BUN/Creat Ratio 16.67 Ratio (12.00-20.00); Calcium 8.9 mg/dL (8.7-10.3); Carbon Dioxide 25.6 mmol/L (21.6-31.8); Non-African American GFR(CKD) 55.2 (60.0-200.0); Potassium 4.5 mmol/L (3.5-5.5)
[2020-01-21 11:37] LABS: Glucose,Whole Blood 164 mg/dL (75-99)
--- NOTE | 2020-01-21 14:08 | P.PN ---
Subjective Progress Note Date: 01/21/20 Davis Wilde is an 84 yo M with PMH of T2DM, HTN, HLD who presented to [facility] with worsening bilateral leg numbness and weakness. He reports he has been experiencing gradual and worsening lower extremity weakness but last week after his BP medications were adjusted his symptoms worsened. He feels his upper extremity strength is also diminished. He has not been able to ambulate as he cannot feel his feet and does not use any mobility aids at home. On presentation his vitals were stable, labs with Cr 1.4, glucose 190, CXR and EKG clear. 01/20/2020 gabapentin added to med regimen yesterday with minimal improvement reported in neuropathy today. Reports this on going weakness has been present for approximately one month. Unable to hold cup or utensils up. Continues on IV fluid hydration, creatinine 1.5. Vague historian, reports urinary retention, possible stricture, suspect BPH? Required straight cath during the night, currently voiding well. 01/21/2020 evaluated by both neurology and orthopedic spine surgery with recommendations noted and appreciated. C-spine MRI reported severe degenerative disc disease, spinal stenosis, multilevel foraminal encroachment, severe cervi olivia myelopathy C4, 5 and 6 with significant myelomalacia within cervical spinal cord. IV steroids initiated yesterday with cervical decompression with discectomy recommended. Objective - Vital Signs Vital signs: Vital Signs Temp 97.4 F L 01/21/20 04:56 Pulse 81 01/21/20 04:56 Resp 18 01/21/20 04:56 BP 125/71 01/21/20 04:56 Pulse Ox 98 01/21/20 04:56 Intake & Output 01/20/20 01/21/20 01/21/20 18:59 06:59 18:59 Intake Total 200 1170 360 Output Total 400 1755 Balance -200 -585 360 Intake: Intake, IV Titration 1170 Amount Sodium Chloride 0.9% 1, 1170 000 ml @ 130 mls/hr IV . Q7H42M [facility] Rx#:[id number] Oral 200 360 Output: Urine 400 1275 Stool 480 Other: Voiding Method Urinal Bedside Commode Urinal # Voids 1 # Bowel Movements 1 - Labs CBC & Chem 7: 01/21/20 05:50 01/21/20 05:50 Labs: Abnormal Lab Results - Last 24 Hours (Table) 01/20/20 01/20/20 01/20/20 Range/Units 11:21 17:22 20:45 Est GFR (CKD-EPI)NonAf (60.0-200.0) Glucose (70-110) mg/dL POC Glucose (mg/dL) 181 H 136 H 190 H (75-99) mg/dL Total Protein (PEP) (6.2-8.2) g/dL 01/21/20 01/21/20 01/21/20 Range/Units 05:50 05:50 07:05 Est GFR (CKD-EPI)NonAf 55.2 L (60.0-200.0) Glucose 155 H (70-110) mg/dL POC Glucose (mg/dL) 143 H (75-99) mg/dL Total Protein (PEP) 5.7 L (6.2-8.2) g/dL Assessment and Plan Assessment: Acute kidney injury, secondary to dehydration from prolonged immobility Generalized weakness with possible diabetic neuropathy.Severe degenerative disc disease, spinal stenosis, multilevel foraminal encroachment, severe cervical myelopathy C4, 5 and 6 with significant myelomalacia within cervical spinal cord per MRI. Hypertension Diabetes mellitus type 2 Peripheral neuropathy Plan: Continue on current medication regime ,monitoring and symptomatic treatment. Patient has decided to proceed with orthopedic spinal surgery - scheduled for tomorrow. Maintain IV fluid hydration with close monitoring of renal function, electrolytes. Repeat labs ordered for a.m. Continue on IV steroids. The impression and plan of care has been dictated as directed. : I performed a history and examination of this patient, discussed the same with the dictator. I agree with the dictator's note ,documented as a scribe. Any ad ditional findings or plans will be noted.
[2020-01-21] MEDS ORDERED: Magnesium Replacement Protocol 1 EACH MISC MISCELLANE PRN (14:19)
[2020-01-21 15:06] LABS: Albumin 3.28 g/dL (3.80-4.90)
--- NOTE | 2020-01-21 15:12 | XR ---
EXAMINATION TYPE: XR chest 1V portable DATE OF EXAM: 01/21/2020 COMPARISON: 01/19/2020 HISTORY: Preop TECHNIQUE: Single frontal view of the chest is obtained. FINDINGS: There is no focal air space opacity, pleural effusion, or pneumothorax seen. The cardiac silhouette size is within normal limits. The osseous structures are intact. Atherosclerotic change aorta. Arthropathy of the shoulders. No overt failure. Underlying COPD suspected. Limited inspiration . IMPRESSION: No acute process. Correlate for COPD.
[2020-01-21] MEDS: methylPREDNISolone SOD SUCCI 125 MG/2 ML VIAL IV SCH ×2 (15:44→23:30)
[2020-01-21 16:43] LABS: Hemoglobin A1C 7.6 % (4.0-6.0)
[2020-01-21 17:19] LABS: Glucose,Whole Blood 122 mg/dL (75-99)
--- NOTE | 2020-01-21 17:25 | ECHOF ---
Referral Reason:LV function MEASUREMENTS -------- HEIGHT: 157.5 cm WEIGHT: 122.5 kg BP: 119/67 RVIDd: 3.5 cm (< 3.3) IVSd: 1.2 cm (0.6 - 1.1) LVIDd: 4.0 cm (3.9 - 5.3) LVPWd: 1.4 cm (0.6 - 1.1) IVSs: 1.2 cm LVIDs: 2.5 cm LVPWs: 1.5 cm LA Diam: 3.1 cm (2.7 - 3.8) MV E Narinder: 0.31 m/s MV DecT: 191 ms MV A Narinder: 0.61 m/s MV E/A Ratio: 0.51 FINDINGS -------- Sinus rhythm. This was a techncally difficult study with suboptimal views, , Lumason utilized for enhancement of im ages. The left ventricular size is normal. There is mild concentric left ventricular hypertrophy. Overa ll left ventricular systolic function is low-normal with, an EF between 50 - 55 %. The right ventricle is normal in size. The left atrial size is normal. The right atrial size is normal. The aortic valve was not well visualized. Trace to mild aortic regurgitation. There is no evidenc e of aortic stenosis. The mitral valve was not well visualized. There is trace to mild mitral regurgitation. The tricuspid valve was not well visualized. Unable to estimate RVSP due to inadequate TR jet spect ral doppler profile. The pulmonic valve was not well visualized. The aortic root size is normal. There is no pericardial effusion. CONCLUSIONS -------- 1. This was a techncally difficult study with suboptimal views, , Lumason utilized for enhancement of images. 2. The left ventricular size is normal. 3. There is mild concentric left ventricular hypertrophy. 4. Overall left ventricular systolic function is low-normal with, an EF between 50 - 55 %. 5. The right ventricle is normal in size. 6. The left atrial size is normal. 7. The right atrial size is normal. 8. Unable to estimate RVSP due to inadequate TR jet spectral doppler profile. 9. The aortic root size is normal. 10. There is no pericardial effusion. INSURANCE LICENSING SUPERVISOR: Kristyn Ingram RDCS
[2020-01-21] MEDS: TAMSULOSIN 0.4 MG CAP.ER.24H PO SCH (18:10)
--- NOTE | 2020-01-21 18:16 | P.PN ---
Subjective Progress Note Date: 01/21/20 Patient offers no new complaints. Continues to be weak in the arms more than legs. Objective - Vital Signs Vital signs: Vital Signs Temp 97.5 F L 01/21/20 11:48 Pulse 74 01/21/20 11:48 Resp 17 01/21/20 11:48 BP 119/67 01/21/20 11:48 Pulse Ox 98 01/21/20 11:48 Intake & Output 01/20/20 01/21/20 01/21/20 18:59 06:59 18:59 Intake Total 200 1170 1400 Output Total 400 1755 Balance -200 -585 1400 Intake: Intake, IV Titration 1170 1040 Amount Sodium Chloride 0.9% 1, 1170 1040 000 ml @ 130 mls/hr IV . Q7H42M [facility] Rx#:[id number] Oral 200 360 Output: Urine 400 1275 Stool 480 Other: Voiding Method Urinal Bedside Commode Urinal Urinal Diaper Incontinent # Voids 1 3 # Bowel Movements 1 - Exam Patient's mentation is completely normal. Speech and language functions normal. Cranial nerves normal. 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 In the lower extent his hip flexion is 5-/5-. Distally the strength is normal. - Labs CBC & Chem 7: 01/21/20 05:50 01/21/20 05:50 Labs: Abnormal Lab Results - Last 24 Hours (Table) 01/20/20 01/21/20 01/21/20 Range/Units 20:45 05:50 05:50 Est GFR (CKD-EPI)NonAf (60.0-200.0) Glucose (70-110) mg/dL POC Glucose (mg/dL) 190 H (75-99) mg/dL Hemoglobin A1c 7.6 H (4.0-6.0) % Total Protein (PEP) 5.7 L (6.2-8.2) g/dL Albumin (PEP) 3.28 L (3.80-4.90) g/dL 01/21/20 01/21/20 01/21/20 Range/Units 05:50 07:05 11:36 Est GFR (CKD-EPI)NonAf 55.2 L (60.0-200.0) Glucose 155 H (70-110) mg/dL POC Glucose (mg/dL) 143 H 164 H (75-99) mg/dL Hemoglobin A1c (4.0-6.0) % Total Protein (PEP) (6.2-8.2) g/dL Albumin (PEP) (3.80-4.90) g/dL 01/21/20 Range/Units 17:16 Est GFR (CKD-EPI)NonAf (60.0-200.0) Glucose (70-110) mg/dL POC Glucose (mg/dL) 122 H (75-99) mg/dL Hemoglobin A1c (4.0-6.0) % Total Protein (PEP) (6.2-8.2) g/dL Albumin (PEP) (3.80-4.90) g/dL Assessment and Plan Assessment: * Severe Cervical spinal stenosis with cervical myelopathy. * Diabetes Plan: * MRI of the cervical spine revealed severe cervical spinal stenosis at C4-5 and C5-6 levels, with multilevel foraminal encroachment. Myelomalacia within the cervical spinal cord at C4 5 and C5 6 levels with associated loss of cord vo lume consistent with myelomalacia. * Patient's B12 is normal 562. * Hemoglobin A1c 7.6, serum protein electrophoresis negative for monoclonal gammopathy. B6 level pending. * Orthopedic surgery input appreciated. Patient to undergo cervical decompressive surgery in the morning.
[2020-01-21 20:53] LABS: Glucose,Whole Blood 304 mg/dL (75-99)
[2020-01-21] MEDS: ATORVASTATIN 20 MG TAB PO SCH (21:23)
[2020-01-21 23:19] LABS: INR 0.92 (0.90-1.11); Prothrombin Time 9.9 sec (9.9-11.9)
[2020-01-22] MEDS: MAGNESIUM SULFATE-D5W PMX 1 GM in DEXTROSE/WATER 1 100ML.BAG IVPB SCH ×2 (02:28→03:49)
[2020-01-22] MEDS ORDERED: DEXAMETHASONE SOD PHOSPHATE 10 MG/ML 1 ML VIAL IV ONE (05:44)
[2020-01-22] MEDS ORDERED: LIDOCAINE 1% (10MG/ML) FOR IV START INTRADERMA PRN (05:44)
[2020-01-22 06:56] LABS: Basophils % (A) 0 %; Eosinophils % (A) 0 %; HCT 40.4 % (39.0-53.0); HGB 13.2 gm/dL (13.0-17.5); Lymphocytes # (A) 0.4 k/uL (1.0-4.8); Lymphocytes % (A) 7 %; MCH 30.2 pg (25.0-35.0); MCHC 32.6 g/dL (31.0-37.0); MCV 92.8 fL (80.0-100.0); Mean Platelet Volume 6.5; Monocytes # (A) 0.1 k/uL (0-1.0); Monocytes % (A) 1 %; Neutrophils # (A) 5.5 k/uL (1.3-7.7); Neutrophils % (A) 91 %; Platelet Count 187 k/uL (150-450); RBC 4.35 m/uL (4.30-5.90); RDW 14.1 % (11.5-15.5); WBC 6.1 k/uL (3.8-10.6)
[2020-01-22 07:00] LABS: Glucose,Whole Blood 253 mg/dL (75-99)
--- NOTE | 2020-01-22 07:47 | P.PN ---
Progress Note - Text Progress Note Date: 01/22/20 Patient is seen and examined today at bedside. He continues have weakness in his bilateral upper extremities and difficulty with his walking. He feels the steroids may have helped with his some of his pain. He's afebrile stable vital signs His exam is unchanged. He has weakness his bilateral upper extremities and difficulty with his coordination with ambulation Assessment and plan Cervical myelopathy with myelomalacia and severe cervical stenosis C4 5 C5 6 Bilateral upper extremity weakness and lower extremity weakness The patient continues to have significant symptoms. It is a positive sign that he is having some symptom at improvement with the steroid. He is scheduled to undergo surgical intervention today for anterior cervical decompression and fusion at C4 5 C5 6. I again discussed the nature of the procedure with him and answered his questions and he elects to proceed. He'll be nothing by mouth after clear liquids this morning and they will continue to monitor his sugars with his diabetes while he is on steroids. Surgery is scheduled for later today.
[2020-01-22] MEDS: methylPREDNISolone SOD SUCCI 125 MG/2 ML VIAL IV SCH ×3 (08:01→23:54)
[2020-01-22] MEDS: GABAPENTIN 300 MG CAP PO SCH ×2 (08:01→21:34)
[2020-01-22] MEDS: PANTOPRAZOLE 40 MG TABLET PO SCH (08:01)
[2020-01-22] MEDS: INSULIN ASPART (NovoLOG) 100 UNIT/ML VIAL SQ SCH ×4 (08:01→21:56)
[2020-01-22] MEDS: FINASTERIDE 5 MG TAB PO SCH (08:01)
[2020-01-22] MEDS: DULoxetine HCL 60 MG CAPSULE.DR PO SCH (08:02)
[2020-01-22] MEDS: HEPARIN SODIUM,PORCINE 5,000 UNIT/ML 1 ML VIAL SQ SCH ×2 (08:02→21:34)
[2020-01-22] MEDS: ASPIRIN 81 MG PO SCH (08:02)
[2020-01-22 09:11] LABS: African American GFR (CKD) 71.1 (60.0-200.0); Anion Gap 7.3 mmol/L (4.00-12.00); BUN/Creat Ratio 15.45 Ratio (12.00-20.00); Calcium 8.9 mg/dL (8.7-10.3); Carbon Dioxide 23.7 mmol/L (21.6-31.8); Magnesium 2.3 mg/dL (1.5-2.4); Non-African American GFR(CKD) 61.3 (60.0-200.0); Potassium 4.7 mmol/L (3.5-5.5)
--- NOTE | 2020-01-22 09:58 | P.PN ---
Subjective Progress Note Date: 01/22/20 Davis Wilde is an 84 yo M with PMH of T2DM, HTN, HLD who presented to [facility] with worsening bilateral leg numbness and weakness. He reports he has been experiencing gradual and worsening lower extremity weakness but last week after his BP medications were adjusted his symptoms worsened. He feels his upper extremity strength is also diminished. He has not been able to ambulate as he cannot feel his feet and does not use any mobility aids at home. On presentation his vitals were stable, labs with Cr 1.4, glucose 190, CXR and EKG clear. 01/20/2020 gabapentin added to med regimen yesterday with minimal improvement reported in neuropathy today. Reports this on going weakness has been present for approximately one month. Unable to hold cup or utensils up. Continues on IV fluid hydration, creatinine 1.5. Vague historian, reports urinary retention, possible stricture, suspect BPH? Required straight cath during the night, currently voiding well. 01/21/2020 evaluated by both neurology and orthopedic spine surgery with recommendations noted and appreciated. C-spine MRI reported severe degenerative disc disease, spinal stenosis, multilevel foraminal encroachment, severe cervi olivia myelopathy C4, 5 and 6 with significant myelomalacia within cervical spinal cord. IV steroids initiated yesterday with cervical decompression with discectomy recommended. 01/22/2020 VSS, Labs pending. Elevated blood sugars, up into the 250s this morning, as high as 300 during the night. Maintained on IV steroids. Weakness persists in all extremities, more so in the upper extremities with minimal improvement.Patient reports neck mobility better, able to move his head a little bit more freely from [id number]. Positive bowel movement .Consuming lear liquid breakfast , then NPO, patient is scheduled for cervical decompression and fusion with orthopedic spine surgery today. Denies chest pain, palpitations or shortness of breath. Objective - Vital Signs Vital signs: Vital Signs Temp 97.6 F 01/22/20 05:00 Pulse 81 01/22/20 05:00 Resp 18 01/22/20 05:00 BP 123/69 01/22/20 05:00 Pulse Ox 94 L 01/22/20 05:00 Intake & Output 01/21/20 01/22/20 01/22/20 18:59 06:59 18:59 Intake Total 1400 1845 Output Total 1400 Balance 1400 445 Intake: Intake, IV Titration 1040 1495 Amount Sodium Chloride 0.9% 1 1040 1495 000 ml @ 130 mls/hr IV . Q7H42M [facility] Rx#:[id number] Oral 360 350 Output: Urine 1400 Other: Voiding Method Urinal Urinal Diaper Diaper Incontinent Incontinent # Voids 3 1 - Exam General: Sitting up in bed, NAD. Vitals reviewed Eyes: PERRL, EOMI, conjunctiva normal HENT: normocephalic, mucus membranes dry. Neck: supple, no JVD Lungs: normal respiratory effort, no wheezes or rales CV: Regular rate and rhythm, no murmur. Peripheral pulses 2+ Abdomen: soft, nondistended, no organomegaly, positive bowel sounds Skin: warm and dry. Neuro: A&Ox3, normal mood and affect. Generalized weakness, minimally changed, appears greatest in the upper extremities this morning. - Labs CBC & Chem 7: 01/22/20 06:15 01/22/20 06:15 Labs: Abnormal Lab Results - Last 24 Hours (Table) 01/21/20 01/21/20 01/21/20 Range/Units 05:50 05:50 05:50 Lymphocytes # (1.0-4.8) k/uL Est GFR (CKD-EPI)NonAf 55.2 L (60.0-200.0) Glucose 155 H (70-110) mg/dL POC Glucose (mg/dL) (75-99) mg/dL Hemoglobin A1c 7.6 H (4.0-6.0) % Total Protein (PEP) 5.7 L (6.2-8.2) g/dL Albumin (PEP) 3.28 L (3.80-4.90) g/dL 01/21/20 01/21/20 01/21/20 Range/Units 11:36 17:16 20:41 Lymphocytes # (1.0-4.8) k/uL Est GFR (CKD-EPI)NonAf (60.0-200.0) Glucose (70-110) mg/dL POC Glucose (mg/dL) 164 H 122 H 304 H (75-99) mg/dL Hemoglobin A1c (4.0-6.0) % Total Protein (PEP) (6.2-8.2) g/dL Albumin (PEP) (3.80-4.90) g/dL 01/22/20 01/22/20 Range/Units 06:15 06:58 Lymphocytes # 0.4 L (1.0-4.8) k/uL Est GFR (CKD-EPI)NonAf (60.0-200.0) Glucose (70-110) mg/dL POC Glucose (mg/dL) 253 H (75-99) mg/dL Hemoglobin A1c (4.0-6.0) % Total Protein (PEP) (6.2-8.2) g/dL Albumin (PEP) (3.80-4.90) g/dL Assessment and Plan Assessment: Acute kidney injury, secondary to dehydration from prolonged immobility Generalized weakness with possible diabetic neuropathy.Severe degenerative disc disease, spinal stenosis, multilevel foraminal encroachment, severe cervical myelopathy C4, 5 and 6 with significant myelomalacia within cervical spinal cord per MRI. Hypertension Diabetes mellitus type 2, hyperglycemic, steroid-induced. Peripheral neuropathy Plan: Continue on current medication regime ,monitoring and symptomatic treatment. NPO, after clear liquid breakfast. Tight control blood sugars, Levemir insulin added to med regimen, starting now . Cervical decompression with fusion scheduled for today, pending cardiac clearance.Maintain IV fluid hydration with close monitoring of renal function, electrolytes. Labs pending. Prognosis guarded given multiple complex medical issues. The impression and plan of care has been dictated as directed. : I performed a history and examination of this patient, discussed the same with the dictator. I agree with the dictator's note ,documented as a scribe. Any additional findings or plans will be noted.
[2020-01-22 11:37] LABS: Glucose,Whole Blood 254 mg/dL (75-99)
[2020-01-22] MEDS: SODIUM CHLORIDE 0.9% 1,000 ML IV SCH ×4 (12:31→21:56)
--- NOTE | 2020-01-22 13:19 | P.CRDCN ---
History of Present Illness Consult date: 01/22/20 History of present illness: CHIEF COMPLAINT: cardiac clearance HISTORY OF PRESENT ILLNESS: This is a 84-year old male with a past medical history significant for hypertension and diabetes mellitus. Patient states he has not followed with a retail management keyholder in several years. We have been asked to see the patient in consultation for cardiac clearance. Patient presented to the hospital due to weakness and balance issues that have been present for the past couple weeks. Patient was found to have severe cervical stenosis of C4-C6 and degenerative disc disease of C4-C7. He is scheduled for anterior cervical decompression with discectomy at C4-[address] Brannon. Patient denies chest pain or pressure. Denies shortness of breath at rest, but reports occasional shortness of breath with exertion. DIAGNOSTICS: EKG reveals SR with 1st degree AV block Chest xray no acute process. Correlate for COPD. Laboratory data: WBC 6.1. Hemoglobin 13.2. Platelet count 187. Sodium 133. Potassium 4.7. BUN 17. Creatinine 1.1. Magnesium 2.3. Current home cardiac medications include Zocor 40 mg daily, lisinopril 10 mg daily, aspirin 81 mg daily Echocardiogram completed reveals ejection fraction 50-55% with no significant valvular abnormalities REVIEW OF SYSTEMS: At the time of my exam: CONSTITUTIONAL: Denies fever or chills. HEENT: Denies blurred vision, vision changes, or eye pain. Denies hemoptysis CARDIOVASCULAR: Denies chest pain, orthopnea, PND or palpitations RESPIRATORY: No shortness of breath. GASTROINTESTINAL: Denies abdominal pain. Denies nausea or vomiting. HEMATOLOGIC: Denies bleeding disorders. GENITOURINARY: Denies any blood in urine. SKIN: Denies pruitis. Denies rash. PHYSICAL EXAM: VITAL SIGNS: Reviewed. GENERAL: Well-developed in no acute distress. HEENT: Head is normocephalic. Pupils are equal, round. Sclerae anicteric. Mucous membranes of the mouth are moist. Neck supple. No JVD or thyromegaly LUNGS: Respirations even and unlabored. Lungs essentially clear to auscultation bilaterally. HEART: Regular rate and rhythm. S1 and S2 heard. ABDOMEN: Soft. Nondistended. Nontender. EXTREMITIES: Normal range of motion. No clubbing or cyanosis. Peripheral pulses intact. Trace bilateral lower extremity edema. Bilateral upper extremity edema. NEUROLOGIC: Awake and alert. Oriented x 3. ASSESSMENT: Severe cervical stenosis C4-6 Degenerative disc disease C4-7 Multiple falls and decreased dexterity due to cervical myelopathy Hypertension Diabetes mellitus, type II PLAN: Patient is without signs or symptoms of angina. No evidence of congestive heart failure. Patient is at moderate risk to undergo surgical intervention, however, there are no absolute contraindications Recommend optimal blood pressure control We will continue to follow along with patient throughout hospitalization Nurse practitioner note has been reviewed by physician. Signing provider agrees with the documented findings, assessment, and plan of care. Past Medical History Past Medical History: Cancer, Diabetes Mellitus, GERD/Reflux, Hyperlipidemia, Hypertension, Osteoarthritis (OA), Prostate Disorder Additional Past Medical History / Comment(s): Recent UTI completed antibiotic, past UTIs, nephrolithiasis/pt passed stones on his own, BPH, skin CA with removals, NIDDM type II, neuropathy in feet recently diagnosed, arthritis in multiple joints/pinched nerve R shoulder with R arm limited ROM, benign colon polyps. History of Any Multi-Drug Resistant Organisms: None Reported Past Surgical History: Hernia Repair, Joint Replacement, Orthopedic Surgery Additional Past Surgical History / Comment(s): EGD, colonoscopies with benign po lyps, multiple skin cancer removals, hiatal hernia repair, bilateral total knee arthroplasties, total R hip arthroplasty, bilateral cataract removals/lens implants. Past Anesthesia/Blood Transfusion Reactions: No Reported Reaction Smoking Status: Never smoker - Past Family History Mother Family Medical History: No Reported History Additional Family Medical History / Comment(s): Mother was healthy and lived to be 94 yrs old. Father Family Medical History: COPD Additional Family Medical History / Comment(s): Father at the age of 75 yrs of COPD. He was a smoker. Medications and Allergies Home Medications Medication Instructions Recorded Confirmed Type Aspirin [Adult Low Dose Aspirin EC] 81 mg PO DAILY 06/22/15 01/19/20 History Ergocalciferol [Vitamin D2] 50,000 unit PO WE 06/22/15 01/19/20 History Finasteride [Proscar] 5 mg PO DAILY 06/22/15 01/19/20 History Omeprazole 40 mg PO AC-BRKFST 06/22/15 01/19/20 History Simvastatin [Zocor] 40 mg PO HS 06/22/15 01/19/20 History buPROPion HCL [Wellbutrin XL] 150 mg PO DAILY 06/22/15 01/19/20 History Clotrimazole/Betameth Cream 1 applic TOPICAL DAILY 01/19/20 01/19/20 History [Lotrisone] DULoxetine HCL [Cymbalta] 60 mg PO DAILY 01/19/20 01/19/20 History Ipratropium [place] 0.06%Nasal 1 spray EA NOSTRIL DAILY 01/19/20 01/19/20 History [Atrovent Nasal 0.06%] Lisinopril [Prinivil] 10 mg PO DAILY 01/19/20 01/19/20 History Repaglinide [Prandin] 2 mg PO TID 01/19/20 01/19/20 History SILVER sulfADIAZINE Cream 1 applic TOPICAL DAILY 01/19/20 01/19/20 History [Silvadene 1% Cream] Sulfamethox-Tmp 800-160Mg [Bactrim 1 tab PO Q12HR 01/19/20 01/19/20 History DS 800-160 mg] sitaGLIPtin [Januvia] 50 mg PO DAILY 01/19/20 01/19/20 History traMADol HCL [Ultram] 50 mg PO Q6H PRN 01/19/20 01/19/20 History Allergies Allergy/AdvReac Type Severity Reaction Status Date / Time Penicillins Allergy Anaphylaxis Verified 01/19/20 07:05 Physical Exam Vitals: Vital Signs Temp Pulse Resp BP BP Pulse Ox 01/21/20 11:48 97.5 F L 74 17 119/67 98 01/21/20 04:56 97.4 F L 81 18 125/71 98 01/20/20 20:30 98.1 F 96 18 124/77 95 Intake and Output 01/21/20 01/21/20 01/21/20 06:59 14:59 22:59 Intake Total 1040 1400 Output Total 625 Balance 415 1400 Intake: Intake, IV Titration 1040 1040 Amount Sodium Chloride 0.9% 1, 1040 1040 000 ml @ 130 mls/hr IV . Q7H42M [facility] Rx#:[id number] Oral 360 Output: Urine 625 Other: Voiding Method Bedside Commode Urinal Urinal Urinal Diaper Diaper Incontinent Incontinent # Voids 3 Results 01/22/20 06:15 01/22/20 06:15 CBC 01/21/20 Range/Units 05:50 WBC 4.9 (3.8-10.6) k/uL RBC 4.48 (4.30-5.90) m/uL Hgb 13.1 (13.0-17.5) gm/dL Hct 41.9 (39.0-53.0) % Plt Count 178 (150-450) k/uL Comprehensive Metabolic Panel 01/21/20 Range/Units 05:50 Sodium 135 (135-145) mmol/L Potassium 4.5 (3.5-5.5) mmol/L Chloride 104 (96-109) mmol/L Carbon Dioxide 25.6 (21.6-31.8) mmol/L BUN 20.0 (9.0-27.0) mg/dL Creatinine 1.2 (0.6-1.5) mg/dL Glucose 155 H (70-110) mg/dL Calcium 8.9 (8.7-10.3) mg/dL Current Medications Generic Name Dose Route Start Last Admin Trade Name Freq PRN Reason Stop Dose Admin Aspirin 81 mg 01/19/20 09:15 01/21/20 08:03 Aspirin 81 Mg PO 81 mg DAILY [facility] Administration Atorvastatin Calcium 20 mg 01/19/20 21:00 01/20/20 20:52 Atorvastatin 20 Mg Tab PO 20 mg HS [facility] Administration Duloxetine HCl 60 mg 01/19/20 09:15 01/21/20 08:03 Duloxetine Hcl 60 Mg Capsule.Dr PO 60 mg DAILY [facility] Administration Finasteride 5 mg 01/20/20 09:00 01/21/20 08:03 Finasteride 5 Mg Tab PO 5 mg DAILY [facility] Administration Gabapentin 300 mg 01/19/20 10:00 01/21/20 08:03 Gabapentin 300 Mg Cap PO 300 mg BID [facility] Administration Heparin Sodium (Porcine) 5,000 unit 01/19/20 09:00 01/21/20 08:03 Heparin Sodium,Porcine 5,000 Unit/Ml 1 Ml Vial SQ 5,000 unit Q12HR [facility] Administration Sodium Chloride 1,000 mls @ 130 mls/hr 01/19/20 23:45 01/21/20 11:00 Saline 0.9% IV 130 mls/hr .Q7H42M [facility] Administration Insulin Aspart 0 unit 01/19/20 07:30 01/21/20 13:15 Insulin Aspart (Novolog) 100 Unit/Ml Vial SQ 2 unit ACHS [facility] Administration Protocol Methylprednisolone Sodium Succinate 60 mg 01/21/20 16:00 01/21/20 15:44 Methylprednisolone Sod Succi 125 Mg/2 Ml Vial IV 60 mg Q8HR [facility] Administration Miscellaneous Information 1 each 01/21/20 14:19 Magnesium Replacement Protocol 1 Each Misc MISCELLANE DAILY PRN Per Protocol Protocol Naloxone HCl 0.2 mg 01/19/20 07:05 Naloxone 0.4 Mg/Ml 1 Ml Vial IV Q2M PRN Opioid Reversal Pantoprazole Sodium 40 mg 01/19/20 09:15 01/21/20 08:03 Pantoprazole 40 Mg Tablet PO 40 mg AC-BRKFST [facility] Administration Tamsulosin HCl 0.4 mg 01/20/20 18:30 01/20/20 17:48 Tamsulosin 0.4 Mg Cap.Er.24h PO 0.4 mg PC-SUPPER [facility] Administration Intake and Output 01/21/20 01/21/20 01/21/20 06:59 14:59 22:59 Intake Total 1040 1400 Output Total 625 Balance 415 1400 Intake: Intake, IV Titration 1040 1040 Amount Sodium Chloride 0.9% 1, 1040 1040 000 ml @ 130 mls/hr IV . Q7H42M [facility] Rx#:[id number] Oral 360 Output: Urine 625 Other: Voiding Method Bedside Commode Urinal Urinal Urinal Diaper Diaper Incontinent Incontinent # Voids 3 01/21/20 05:50 01/21/20 05:50
--- NOTE | 2020-01-22 15:27 | P.PN ---
Subjective Progress Note Date: 01/22/20 Patient offers no new complaints. Continues to be weak in the arms more than legs. Feels steroids is helping with his strength. Objective - Vital Signs Vital signs: Vital Signs Temp 97.7 F 01/22/20 12:20 Pulse 89 01/22/20 12:20 Resp 17 01/22/20 12:20 BP 104/62 01/22/20 12:20 Pulse Ox 95 01/22/20 12:20 Intake & Output 01/21/20 01/22/20 01/22/20 18:59 06:59 18:59 Intake Total 1400 1845 720 Output Total 1400 1500 Balance 1400 445 -780 Intake: Intake, IV Titration 1040 1495 Amount Sodium Chloride 0.9% 1, 1040 1495 000 ml @ 130 mls/hr IV . Q7H42M [facility] Rx#:[id number] Oral 360 350 720 Output: Urine 1400 1500 Other: Voiding Method Urinal Urinal Urinal Diaper Diaper Diaper Incontinent Incontinent Incontinent # Voids 3 1 3 # Bowel Movements 2 - Exam Patient's mentation is completely normal. Speech and language functions normal. Cranial nerves normal. Detailed motor strength testing deferred. 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 In the lower extent his hip flexion is 5-/5-. Distally the strength is normal. - Labs CBC & Chem 7: 01/22/20 06:15 01/22/20 06:15 Labs: Abnormal Lab Results - Last 24 Hours (Table) 01/21/20 01/21/20 01/21/20 Range/Units 05:50 17:16 20:41 Lymphocytes # (1.0-4.8) k/uL Sodium (135-145) mmol/L Glucose (70-110) mg/dL POC Glucose (mg/dL) 122 H 304 H (75-99) mg/dL Hemoglobin A1c 7.6 H (4.0-6.0) % 01/22/20 01/22/20 01/22/20 Range/Units 06:15 06:15 06:58 Lymphocytes # 0.4 L (1.0-4.8) k/uL Sodium 133 L (135-145) mmol/L Glucose 273 H (70-110) mg/dL POC Glucose (mg/dL) 253 H (75-99) mg/dL Hemoglobin A1c (4.0-6.0) % 01/22/20 Range/Units 11:36 Lymphocytes # (1.0-4.8) k/uL Sodium (135-145) mmol/L Glucose (70-110) mg/dL POC Glucose (mg/dL) 254 H (75-99) mg/dL Hemoglobin A1c (4.0-6.0) % Assessment and Plan Assessment: * Severe Cervical spinal stenosis with cervical myelopathy. * Diabetes Plan: * MRI of the cervical spine revealed severe cervical spinal stenosis at C4-5 and C5-6 levels, with multilevel foraminal encroachment. Myelomalacia within the cervical spinal cord at C4 5 and C5 6 levels with associated loss of cord volume consistent with myelomalacia. * Patient's B12 is normal 562. * Hemoglobin A1c 7.6, serum protein electrophoresis and immune fixation electrophoresis negative for monoclonal gammopathy. B6 level pending. * Orthopedic surgery input appreciated. Patient to undergo cervical decompressive surgery today at 6 PM. * Dr. Jani Mcdonnell Will resume neurology service on 01/25/2020.
[2020-01-22] MEDS ORDERED: LACTATED RINGERS 1,000 ML IV ONE ×2 (16:27→19:53)
[2020-01-22 16:59] LABS: Glucose,Whole Blood 147 mg/dL (75-99)
[2020-01-22] MEDS ORDERED: ONDANSETRON 4 MG/2 ML VIAL IVP ONE (17:00)
[2020-01-22] MEDS ORDERED: ONDANSETRON 4 MG/2 ML VIAL ONE (17:01)
[2020-01-22] MEDS ORDERED: PROPOFOL 10 MG/ML 20 ML VIAL IV ONE (17:26)
[2020-01-22] MEDS ORDERED: LIDOCAINE 1% INJ 10MG/ML (20 ML MDV) ONE (17:26)
[2020-01-22] MEDS ORDERED: fentaNYL (PF) 50 MCG/ML 2 ML AMP ONE (17:26)
[2020-01-22] MEDS ORDERED: SUCCINYLCHOLINE CHLORIDE 100 MG/5 ML SYR IV ONE (17:26)
[2020-01-22] MEDS ORDERED: MIDAZOLAM 2 MG/2 ML VIAL ONE (17:26)
[2020-01-22] MEDS ORDERED: LIDOCAINE 2%-EPI 1:100,000 20 ML VIAL SQ ONE ×2 (18:03)
[2020-01-22] MEDS ORDERED: SODIUM CHLORIDE 0.9% IRRIGATION ONE (18:03)
[2020-01-22] MEDS ORDERED: CEFAZOLIN IRRIGATION ONE (18:03)
[2020-01-22] MEDS ORDERED: GELATIN SPONGE,ABSORB (LARGE) 1 EACH SPONGE MISCELLANE ONE (18:03)
[2020-01-22] MEDS ORDERED: BUPIVACAINE (PF) 0.5% 30 ML VIAL SQ ONE ×2 (18:03)
[2020-01-22] MEDS ORDERED: THROMBIN (BOVINE) 5,000 UNIT VIAL TOPICAL ONE (18:03)
[2020-01-22] MEDS ORDERED: HYDROmorphone 0.5 MG/0.5 ML SYRINGE IVP ONE (20:12)
[2020-01-22 20:16] LABS: Glucose,Whole Blood 233 mg/dL (75-99)
[2020-01-22] MEDS ORDERED: INSULIN ASPART (NovoLOG) 100 UNIT/ML VIAL SQ ONE (20:21)
[2020-01-22] MEDS ORDERED: HYDROmorphone 0.5 MG/0.5 ML SYRINGE IVP PRN (20:23)
[2020-01-22] MEDS ORDERED: ONDANSETRON 4 MG/2 ML VIAL IVP PRN (20:23)
[2020-01-22] MEDS ORDERED: HYDROmorphone 1 MG/ML 1 ML SYRINGE IVP PRN (20:23)
[2020-01-22] MEDS ORDERED: ACETAMINOPHEN TAB 325 MG TAB PO PRN (20:23)
--- NOTE | 2020-01-22 20:29 | P.OP ---
Date of Procedure: 01/22/20 Preoperative Diagnosis: Cervical myelopathy, severe cervical stenosis C4 5 C5 6, herniated nucleus pulposis C4 5 C5 6, cervical myelomalacia, upper extremity weakness, lower extremity weakness, central cord syndrome Postoperative Diagnosis: Cervical myelopathy, severe cervical stenosis C4 5 C5 6, herniated nucleus pulposis C4 5 C5 6, cervical myelomalacia, upper extremity weakness, lower extremity weakness, central cord syndrome Anesthesia: GETA Pathology: none sent Condition: stable Disposition: PACU Description of Procedure: BRIEF OPERATIVE NOTE Preoperative Diagnosis:Cervical myelopathy, severe cervical stenosis C4 5 C5 6, herniated nucleus pulposis C4 5 C5 6, cervical myelomalacia, upper extremity weakness, lower extremity weakness, central cord syndrome Postoperative Diagnosis:Cervical myelopathy, severe cervical stenosis C4 5 C5 6, herniated nucleus pulposis C4 5 C5 6, cervical myelomalacia, upper extremity weakness, lower extremity weakness, central cord syndrome Procedure: Anterior cervical decompression with discectomy and fusion C4 5 C5 6 Placement of interbody graft C4 5 C5 6 Application of anterior cervical plate C4 5 and 6 Surgeon: Dr. Brannon Repairer Veneer Sheet: certified phlebotomy technician Anesthesia: General anesthesia Estimated blood loss: Approximately 50 mL Complications: None apparent Components implanted: K2M [place] anterior cervical plate system with screws and Vikos interbody allograft bone graft with 1 mL of DBX bone putty Disposition: To recovery room in good stable condition. OPERATIVE INDICATIONS The patient has had long-standing issues in their neck and upper extremities. He's been having significant worsening and had a couple falls in the past several weeks. He is noticing significant weakness at his upper extremities and lower extremities and decreased coordination in his hands and feet. He had to be admitted due to his generalized weakness and inability to ambulate. He had evaluation with neurology had the patient undergo an MRI of his cervical spine where he was found have severe stenosis at his cervical spine. Progress to see the patient in this regard and he was found to have evidence of cervical myelopathy with myelomalacia causing neurologic changes in his upper and lower extremities. The patient has been through conservative treatment. He was given steroid and had a little bit of benefit yesterday but we discussed further treatment with him including the possibility of surgery. He understood that surgery had significant risks given his age and multiple medical issues but he felt that he was having such severe symptoms that he had to undergo surgery to give him a chance of improving some of his symptoms and help his mobility. He understood that he may have permanent neurologic change due to his condition. We discussed various treatment options including surgery, and the patient wishes to proceed with surgery We discussed the risk, patient's alternatives and benefits of surgery including but not limited to, risk of bleeding risk of infection, risk of need for further surgery, risk of decreased, loss of motion, muscle function, malunion nonunion, hardware failure, nerve damage, paralysis, heart attack, and . OPERATIVE SUMMARY After discussing all the risks, patient alternatives and benefits at length, the patient elected to proceed with surgical intervention, signed informed consent, and presented for their procedure. The patient was seen and examined in the preoperative holding area and the surgical site was marked. The patient was given antibiotics and brought to the operating room. The patient was positioned on the operating room table in a supine position being careful to pad any bony prominences and pressure points. The patient was sedated and intubated by anesthesia in standard fashion. Once the airway and C- spine were stabilized the patient's arms were padded and tucked at her side, with her shoulders gently taped. The head was placed in a donut pad with the neck in good neutral alignment and position. We were careful to maintain the patient's cervical spine and good neutral alignment and position throughout. The patient was prepped and draped in a normal standard fashion. An appropriate timeout and keystone protocol performed. We were able to proceed with the surgery. The local wound area was infiltrated with local anesthetic. An incision was made transversely approximately 2-1/2 cm over the appropriate levels at C5. Dissection was taken down subcutaneously to the level of the platysma which was split in line with its fibers. Dissection was taken with a carotid approach, with the trachea and esophagus medial and the carotid sheath laterally. We dissected down to the anterior surface of the vertebral bodies. Intraoperative x-ray was taken which showed a marker at the appropriate level at C4 5. With the appropriate level positively confirmed, we were able to proceed with discectomy at the appropriate levels starting at C4 5 and then moving the C5 6. All of the operative levels were exposed appropriately. The patient had all their twitches back, and there was no evidence of recurrent laryngeal issue. The wound was copiously irrigated and suctioned dry as had been done periodically throughout the case. At the appropriate level/levels, I established an annulotomy with an 11 blade scalpel. A discectomy was performed with a combination of pituitary rongeurs, curettes, a high-speed bur, and Kerrison rongeurs. The posterior longitudinal ligament was taken down as were any posterior osteophytes. Note was made of severe disc loss and large anterior and posterior osteophytes that had to be taken down. There is significant disc protrusion and stenosis which was relieved with the discectomy and removal of the posterior osteophytes. This gave good central and bilateral foraminal decompression. There is no evidence of any dural tear or leak. The endplates w ere prepared with a high-speed bur. With the endplates in good parallel position, I was able to size for the appropriate size interbody graft. The wound was irrigated and suctioned dry the graft was prepared and malleted into position. It had good alignment and position with the anterior surface flush with the anterior surface of the vertebral bodies. This was done similarly the appropriate levels first at C4 5 and then at C5 6. With the grafts intact, I was able to measure and contour and appropriate sized plate. The plate was positioned at the midline over the appropriate levels. Screw holes were established with a hand drill and drill guide. Screws were placed in good alignment and position with excellent bony purchase. They were seated under the locking device. The construct was checked and found to be stable. Intraoperative x-ray was taken which showed good alignment and position of the implants at the appropriate levels. There was no evidence of any dural tear or leak. Good hemostasis was maintained. The wound was copiously irrigated and suctioned dry as had been done periodically throughout the case. The platysma was closed with absorbable suture. The subcutaneous tissue was closed. The subcuticular tissue was closed with absorbable suture. The wound was cleaned and dried and dressed appropriately. A soft cervical collar was placed appropriately. The patient was woken up by anesthesia, extubated, transferred back gently to their hospital bed and brought to the recovery room in good stable condition. The patient will be admitted to the hospital for appropriate postoperative care, medical management and monitoring. We will continue to follow them closely about the postoperative course.
--- NOTE | 2020-01-22 21:12 | XR ---
Result: History: Intraoperative. Comparison: None available. Technique: Single crosstable lateral view of the cervical spine. Findings: There is demonstration of surgical instrumentation in the field of view. There is also note of remnan t catheter overlying the neck soft tissues. Otherwise the cervical spine is visualized from C2 through C5 with multilevel moderate to severe dege nerative changes seen. No acute fracture or subluxation. Impression: Intraoperative radiograph as above. Please see procedure report for details.
[2020-01-22] MEDS: TAMSULOSIN 0.4 MG CAP.ER.24H PO SCH (21:34)
[2020-01-22] MEDS: ATORVASTATIN 20 MG TAB PO SCH (21:35)
[2020-01-22] MEDS: LACTATED RINGERS 1,000 ML IV SCH (21:37)
[2020-01-22 21:48] LABS: Glucose,Whole Blood 201 mg/dL (75-99)
--- NOTE | 2020-01-22 21:59 | XR ---
Result: History: Postoperative cervical spine. Comparison: Earlier same day radiograph. Technique: Single crosstable lateral view of the cervical spine. Findings: There is interval demonstration of partially imaged ACDF. Otherwise the cervical spine is visualized from C2 through C5. No acute fracture or subluxation. Impression: Status post ACDF. Please see operative report for details.
[2020-01-23] MEDS: BENZOCAINE/MENTHOL LOZENG 1 EACH LOZENGE MUCOUS MEM PRN ×2 (02:33→20:34)
[2020-01-23] MEDS: SODIUM CHLORIDE 0.9% 1,000 ML IV SCH ×2 (04:56→10:27)
[2020-01-23] MEDS: LACTATED RINGERS 1,000 ML IV SCH ×2 (04:56→21:22)
[2020-01-23] MEDS: HYDROcodone/APAP 5-325MG 1 EACH TAB PO PRN (05:17)
[2020-01-23 06:50] LABS: Basophils % (A) 0 %; Eosinophils # (A) 0.1 k/uL (0-0.7); Eosinophils % (A) 1 %; HCT 41.1 % (39.0-53.0); Lymphocytes # (A) 0.5 k/uL (1.0-4.8); Lymphocytes % (A) 4 %; MCH 29.4 pg (25.0-35.0); MCHC 31.5 g/dL (31.0-37.0); MCV 93.2 fL (80.0-100.0); Mean Platelet Volume 6.7; Monocytes # (A) 0.4 k/uL (0-1.0); Monocytes % (A) 3 %; Neutrophils % (A) 92 %; Platelet Count 217 k/uL (150-450); RBC 4.41 m/uL (4.30-5.90); RDW 14.4 % (11.5-15.5)
[2020-01-23 07:15] LABS: Glucose,Whole Blood 195 mg/dL (75-99)
[2020-01-23] MEDS: PANTOPRAZOLE 40 MG TABLET PO SCH (07:51)
[2020-01-23] MEDS: INSULIN DETEMIR (LEVEMIR) 100 UNIT/ML SYR SQ SCH (07:51)
[2020-01-23] MEDS: methylPREDNISolone SOD SUCCI 125 MG/2 ML VIAL IV SCH ×2 (07:51→15:42)
[2020-01-23] MEDS: INSULIN ASPART (NovoLOG) 100 UNIT/ML VIAL SQ SCH ×4 (07:52→20:29)
[2020-01-23] MEDS: DULoxetine HCL 60 MG CAPSULE.DR PO SCH (09:13)
[2020-01-23] MEDS: HEPARIN SODIUM,PORCINE 5,000 UNIT/ML 1 ML VIAL SQ SCH ×2 (09:13→20:29)
[2020-01-23] MEDS: SENNOSIDES-DOCUSATE SODIUM 1 EACH TAB PO SCH (09:13)
[2020-01-23] MEDS: FINASTERIDE 5 MG TAB PO SCH (09:13)
[2020-01-23] MEDS: GABAPENTIN 300 MG CAP PO SCH ×2 (09:13→20:29)
[2020-01-23] MEDS: ASPIRIN 81 MG PO SCH (09:13)
--- NOTE | 2020-01-23 09:21 | P.PN ---
Progress Note - Text Progress Note Date: 01/23/20 Postoperative day #1 Patient is seen and examined today at bedside. The patient has some pain around the surgical site as expected. He is tolerating his soft diet this morning. He feels his arms are less painful but still difficult in terms of his motor use. Pain is being controlled with medication. Physical Exam Afebrile with stable vital signs Abdomen is soft nontender. Chest has good excursion deep and space expiration The incision site is clean dry and intact. No erythema there is no purulence. His neck is soft and supple. There is no drainage on the dressing. Extremities have not had neurologic change from prior to surgery. He still has limited motion and strength and his hands and fingers. He is able to move his extremities fingers risks of and shoulders. He has sustained dorsal to plantar flexion and EHL Calves and thighs were soft nontender without evidence of DVT. Assessment/Plan Postoperative day #1 status post anterior cervical decompression with discectomy and fusion C4 5 C5 6 for his cervical myelopathy and severe cervical stenosis with myelomalacia and upper and lower extremity weakness Patient is progressing as expected from the surgery. He has evidence of spinal cord injury which will be very slow healing in with the surgical intervention that has been performed. I would like him to start mobilizing with physical therapy and start activities of daily living with him. It is currently quite difficult for him to mobilize on his own and he will likely need extended care after discharge in order to strengthen before returning home. I discussed this with him and he understands. We'll have case management see him. We will continue to increase the patient's mobilization with therapy. We will continue pain control with oral or IV medications. We'll continue to follow patient closely.
[2020-01-23 10:05] LABS: African American GFR (CKD) 79.7 (60.0-200.0); Anion Gap 5.2 mmol/L (4.00-12.00); Calcium 8.8 mg/dL (8.7-10.3); Carbon Dioxide 26.8 mmol/L (21.6-31.8); Non-African American GFR(CKD) 68.8 (60.0-200.0)
--- NOTE | 2020-01-23 11:32 | XR ---
EXAMINATION TYPE: XR chest 1V DATE OF EXAM: 01/23/2020 CLINICAL HISTORY: CHF. TECHNIQUE: Portable frontal view of the chest. COMPARISON: 01/21/2020 chest radiograph FINDINGS: Low lung volumes. The cardiomediastinal silhouette is within normal limits for size. Pulmo nary vasculature is normal. There is no focal air space opacity, pleural effusion, or pneumothorax se en. Degenerative changes of the shoulders. IMPRESSION: No acute cardiopulmonary process.
--- NOTE | 2020-01-23 11:48 | P.PN ---
Subjective Davis Wilde is an 84 yo M with PMH of T2DM, HTN, HLD who presented to [facility] with worsening bilateral leg numbness and weakness. He reports he has been experiencing gradual and worsening lower extremity weakness but last week after his BP medications were adjusted his symptoms worsened. He feels his upper extremity strength is also diminished. He has not been able to ambulate as he cannot feel his feet and does not use any mobility aids at home. On presentation his vitals were stable, labs with Cr 1.4, glucose 190, CXR and EKG clear. 01/20/2020 gabapentin added to med regimen yesterday with minimal improvement reported in neuropathy today. Reports this on going weakness has been present for approximately one month. Unable to hold cup or utensils up. Continues on IV fluid hydration, creatinine 1.5. Vague historian, reports urinary retention, possible stricture, suspect BPH? Required straight cath during the night, currently voiding well. 01/21/2020 evaluated by both neurology and orthopedic spine surgery with recommendations noted and appreciated. C-spine MRI reported severe degenerative disc disease, spinal stenosis, multilevel foraminal encroachment, severe cervical myelopathy C4, 5 and 6 with significant myelomalacia within cervical spinal cord. IV steroids initiated yesterday with cervical decompression with discectomy recommended. 01/22/2020 VSS, Labs pending. Elevated blood sugars, up into the 250s this morning, as high as 300 during the night. Maintained on IV steroids. Weakness persists in all extremities, more so in the upper extremities with minimal improvement.Patient reports neck mobility better, able to move his head a little bit more freely from [id number]. Positive bowel movement .Consuming lear liquid breakfast , then NPO, patient is scheduled for cervical decompression and fusion with orthopedic spine surgery today. Denies chest pain, palpitations or shortness of breath. 01/23/2020 Patient believes his weakness in all 4 limbs is bit better Constitutional: Denie d any fatigue denied any fever. Cardio vascular: denied any chest pain, palpitations Gastrointestinal denied any nausea vomiting Pulmonary: Denied any shortness of breath cough Neurologic denied any new focal deficits All inpatient medications were reviewed and appropriate changes in these medications as dictated in the interval history and assessment and plan. Objective - Vital Signs Vital signs: Vital Signs Temp 97.4 F L 01/23/20 05:16 Pulse 80 01/23/20 05:16 Resp 16 01/23/20 05:16 BP 161/82 01/23/20 05:16 Pulse Ox 91 L 01/23/20 05:16 Intake & Output 01/22/20 01/23/20 01/23/20 18:59 06:59 18:59 Intake Total 1771 1190 Output Total 1500 20 300 Balance 271 1170 -300 Weight 122.47 kg Intake: IV 1051 300 Intake, IV Titration 650 Amount Sodium Chloride 0.9% 1, 600 000 ml @ 75 mls/hr IV . [id number] [facility]ERSON Rx#:[id number] ceFAZolin 2 gm In Sodium 50 Chloride 0.9% 50 ml @ 100 mls/hr IVPB Q8H [facility] Rx#: [id number] Oral 720 240 Output: Urine 1500 300 Estimated Blood Loss 20 Other: Voiding Method Urinal Urinal Urinal Diaper Diaper Diaper Incontinent Incontinent Incontinent # Voids 3 1 1 # Bowel Movements 2 - Exam PHYSICAL EXAMINATION: GENERAL: The patient is alert and oriented x3, not in any acute distress. Well developed, well nourished. HEENT: Pupils are round and equally reacting to light. EOMI. No scleral icterus. No conjunctival pallor. Normocephalic, atraumatic. No pharyngeal erythema. No thyromegaly. CARDIOVASCULAR: S1 and S2 present. No murmurs, rubs, or gallops. PULMONARY: Chest is clear to auscultation, no wheezing or crackles. ABDOMEN: Soft, nontender, nondistended, normoactive bowel sounds. No palpable organomegaly. MUSCULOSKELETAL: No joint swelling or deformity. EXTREMITIES: No cyanosis, clubbing, or pedal edema. NEUROLOGICAL: Denied any new focal weakness in fact his weakness in all 4 limbs is better as per the patient SKIN: No rashes. - Labs CBC & Chem 7: 01/23/20 06:39 01/23/20 06:39 Labs: Abnormal Lab Results - Last 24 Hours (Table) 01/22/20 01/22/20 01/22/20 Range/Units 16:54 20:14 21:46 WBC (3.8-10.6) k/uL Neutrophils # (1.3-7.7) k/uL Lymphocytes # (1.0-4.8) k/uL Glucose (70-110) mg/dL POC Glucose (mg/dL) 147 H 233 H 201 H (75-99) mg/dL 01/23/20 01/23/20 01/23/20 Range/Units 06:39 06:39 07:12 WBC 12.0 H (3.8-10.6) k/uL Neutrophils # 11.0 H (1.3-7.7) k/uL Lymphocytes # 0.5 L (1.0-4.8) k/uL Glucose 226 H (70-110) mg/dL POC Glucose (mg/dL) 195 H (75-99) mg/dL Assessment and Plan Plan: -Severe sepsis cervical spinal stenosis with cervical myelopathy leading to weakness: Patient is status post rectal decompression surgery and discectomy at C4-C5 and C5-C6 levels. Patient weakness is better objectively post surgery. --Acute renal failure prerenal azotemia from dehydration which improved with IV fluids -Hypertension next and heparin type 2 diabetes mellitus with steroid-induced hyperglycemia that she was admitted controlled now -Diabetes mellitus peripheral neuropathy.
[2020-01-23 11:58] LABS: Glucose,Whole Blood 242 mg/dL (75-99)
[2020-01-23 17:11] LABS: Glucose,Whole Blood 236 mg/dL (75-99)
[2020-01-23] MEDS: TAMSULOSIN 0.4 MG CAP.ER.24H PO SCH (17:19)
[2020-01-23 19:39] LABS: Glucose,Whole Blood 310 mg/dL (75-99)
[2020-01-23] MEDS: KETOROLAC 15 MG/ML 1 ML VIAL IVP PRN (20:29)
[2020-01-23] MEDS: ATORVASTATIN 20 MG TAB PO SCH (20:29)
[2020-01-24] MEDS: methylPREDNISolone SOD SUCCI 125 MG/2 ML VIAL IV SCH ×3 (00:05→11:45)
[2020-01-24] MEDS: KETOROLAC 15 MG/ML 1 ML VIAL IVP PRN (04:54)
[2020-01-24] MEDS: BENZOCAINE/MENTHOL LOZENG 1 EACH LOZENGE MUCOUS MEM PRN ×3 (04:57→20:03)
[2020-01-24 07:20] LABS: Glucose,Whole Blood 213 mg/dL (75-99)
[2020-01-24] MEDS: PANTOPRAZOLE 40 MG TABLET PO SCH (08:25)
[2020-01-24] MEDS: GABAPENTIN 300 MG CAP PO SCH ×2 (08:25→20:02)
[2020-01-24] MEDS: INSULIN DETEMIR (LEVEMIR) 100 UNIT/ML SYR SQ SCH (08:25)
[2020-01-24] MEDS: ASPIRIN 81 MG PO SCH (08:25)
[2020-01-24] MEDS: DULoxetine HCL 60 MG CAPSULE.DR PO SCH (08:25)
[2020-01-24] MEDS: FINASTERIDE 5 MG TAB PO SCH (08:25)
[2020-01-24] MEDS: SENNOSIDES-DOCUSATE SODIUM 1 EACH TAB PO SCH (08:25)
[2020-01-24] MEDS: HEPARIN SODIUM,PORCINE 5,000 UNIT/ML 1 ML VIAL SQ SCH ×2 (08:25→20:02)
[2020-01-24] MEDS: INSULIN ASPART (NovoLOG) 100 UNIT/ML VIAL SQ SCH ×4 (08:26→20:21)
[2020-01-24 09:30] LABS: African American GFR (CKD) 71.1 (60.0-200.0); Anion Gap 4.9 mmol/L (4.00-12.00); Calcium 9.1 mg/dL (8.7-10.3); Carbon Dioxide 29.1 mmol/L (21.6-31.8); Non-African American GFR(CKD) 61.3 (60.0-200.0); Potassium 4.8 mmol/L (3.5-5.5)
[2020-01-24] MEDS ORDERED: IPRATROPIUM-ALBUTEROL 3 ML NEB INHALATION PRN (10:34)
--- NOTE | 2020-01-24 11:22 | P.PN ---
Subjective Davis Wilde is an 84 yo M with PMH of T2DM, HTN, HLD who presented to [facility] with worsening bilateral leg numbness and weakness. He reports he has been experiencing gradual and worsening lower extremity weakness but last week after his BP medications were adjusted his symptoms worsened. He feels his upper extremity strength is also diminished. He has not been able to ambulate as he cannot feel his feet and does not use any mobility aids at home. On presentation his vitals were stable, labs with Cr 1.4, glucose 190, CXR and EKG clear. 01/20/2020 gabapentin added to med regimen yesterday with minimal improvement reported in neuropathy today. Reports this on going weakness has been present for approximately one month. Unable to hold cup or utensils up. Continues on IV fluid hydration, creatinine 1.5. Vague historian, reports urinary retention, possible stricture, suspect BPH? Required straight cath during the night, currently voiding well. 01/21/2020 evaluated by both neurology and orthopedic spine surgery with recommendations noted and appreciated. C-spine MRI reported severe degenerative disc disease, spinal stenosis, multilevel foraminal encroachment, severe cervical myelopathy C4, 5 and 6 with significant myelomalacia within cervical spinal cord. IV steroids initiated yesterday with cervical decompression with discectomy recommended. 01/22/2020 VSS, Labs pending. Elevated blood sugars, up into the 250s this morning, as high as 300 during the night. Maintained on IV steroids. Weakness persists in all extremities, more so in the upper extremities with minimal improvement.Patient reports neck mobility better, able to move his head a little bit more freely from [id number]. Positive bowel movement .Consuming lear liquid breakfast , then NPO, patient is scheduled for cervical decompression and fusion with orthopedic spine surgery today. Denies chest pain, palpitations or shortness of breath. 01/23/2020 Patient believes his weakness in all 4 limbs is bit better 01/21/2020 Patient is complaining of bilateral shoulder pain. he is complaining of sore throat and irritation in the throat from intubation, Cepacol was ordered. Patient also having cough Constitutional: Denied any fatigue denied any fever. Cardio vascular: denied any chest pain, palpitations Gastrointestinal denied any nausea vomiting Pulmonary: Denied any shortness of breath cough Neurologic denied any new focal deficits All inpatient medications were reviewed and appropriate changes in these medications as dictated in the interval history and assessment and plan. Objective - Vital Signs Vital signs: Vital Signs Temp 98.3 F 01/24/20 05:00 Pulse 77 01/24/20 05:00 Resp 18 01/24/20 05:00 BP 147/88 01/24/20 05:00 Pulse Ox 98 01/24/20 05:00 Intake & Output 01/23/20 01/24/20 01/24/20 18:59 06:59 18:59 Intake Total 500 240 Output Total 300 400 Balance 200 -160 Intake: Intake, IV Titration 500 Amount Sodium Chloride 0.9% 1, 450 000 ml @ 75 mls/hr IV . [id number] [facility] Rx#:[id number] ceFAZolin 2 gm In Sodium 50 Chloride 0.9% 50 ml @ 100 mls/hr IVPB Q8H [facility]ERSON Rx#: [id number] Oral 240 Output: Urine 300 400 Other: Voiding Method Urinal Urinal Urinal Diaper Diaper Diaper Incontinent Incontinent Incontinent # Voids 1 1 - Exam PHYSICAL EXAMINATION: GENERAL: The patient is alert and oriented x3, not in any acute distress. Well developed, well nourished. HEENT: Pupils are round and equally reacting to light. EOMI. No scleral icterus. No conjunctival pallor. Normocephalic, atraumatic. No pharyngeal erythema. No thyromegaly. CARDIOVASCULAR: S1 and S2 present. No murmurs, rubs, or gallops. PULMONARY: Chest is clear to auscultation, no wheezing or crackles. ABDOMEN: Soft, nontender, nondistended, normoactive bowel sounds. No palpable organomegaly. MUSCULOSKELETAL: No joint swelling or deformity. EXTREMITIES: No cyanosis, clubbing, or pedal edema. NEUROLOGICAL: Denied any new focal weakness in fact his weakness in all 4 limbs is better as per the patient SKIN: No rashes. - Labs CBC & Chem 7: 01/23/20 06:39 01/24/20 05:36 Labs: Abnormal Lab Results - Last 24 Hours (Table) 01/23/20 01/23/20 01/23/20 Range/Units 11:54 17:09 19:38 Glucose (70-110) mg/dL POC Glucose (mg/dL) 242 H 236 H 310 H (75-99) mg/dL 01/24/20 01/24/20 Range/Units 05:36 07:17 Glucose 220 H (70-110) mg/dL POC Glucose (mg/dL) 213 H (75-99) mg/dL Assessment and Plan Plan: -Severe sepsis cervical spinal stenosis with cervical myelopathy leading to weakness: Patient is status post rectal decompression surgery and discectomy at C4-C5 and C5-C6 levels. Patient weakness is better objectively post surgery. --Acute renal failure prerenal azotemia from dehydration which improved with IV fluids -Hypertension next and heparin type 2 diabetes mellitus with steroid-induced hyperglycemia that she was admitted controlled now -Diabetes mellitus peripheral neuropathy.
--- NOTE | 2020-01-24 11:37 | P.PN ---
Progress Note - Text Progress Note Date: 01/24/20 Postoperative day #2 Patient is seen and examined today at bedside. The patient has some pain around the surgical site as expected. He is able to swallow but still spitting up some phlegm. Pain is being controlled with medication. He has had very little mobilization thus far. Physical Exam Afebrile with stable vital signs Abdomen is soft nontender. Chest has good excursion deep and space expiration The incision site is clean dry and intact. No erythema there is no purulence. His neck is soft and supple Extremities have not had neurologic change from prior to surgery. His upper extremity still have significant weakness and decreased dexterity. His lower extremities have some swelling reasonable sustained dorsiflexion plantarflexion and EHL Calves and thighs were soft nontender without evidence of DVT. Assessment/Plan Postoperative day #2 status post anterior cervical decompression with discectomy fusion C4 5 C5 6 for his severe cervical stenosis with cervical myelopathy, myelomalacia, and upper and lower extremity weakness Patient is progressing quite slowly as expected from the surgery. He has spinal cord injury with myelomalacia and myelopathy and bilateral weakness at his upper and lower extremities. We need to continue to encourage some mobilization in his upper and lower extremities. I think we can try to convert his steroid to oral. We will continue to increase the patient's mobilization with therapy. We will continue pain control with oral or IV medications. He will need extended care following discharge. We are making arrangements and hopefully that can happen tomorrow. We'll continue to follow patient closely.
[2020-01-24] MEDS: predniSONE 20 MG TAB PO SCH (11:59)
[2020-01-24 12:01] LABS: Glucose,Whole Blood 160 mg/dL (75-99)
[2020-01-24 17:26] LABS: Glucose,Whole Blood 205 mg/dL (75-99)
[2020-01-24] MEDS: TAMSULOSIN 0.4 MG CAP.ER.24H PO SCH (17:38)
[2020-01-24] MEDS: HYDROcodone/APAP 5-325MG 1 EACH TAB PO PRN (17:41)
[2020-01-24] MEDS: ATORVASTATIN 20 MG TAB PO SCH (20:02)
[2020-01-24 20:13] LABS: Glucose,Whole Blood 270 mg/dL (75-99)
[2020-01-24] MEDS ORDERED: HYDROmorphone 0.5 MG/0.5 ML SYRINGE IM PRN (20:13)
[2020-01-25] MEDS: HYDROcodone/APAP 5-325MG 1 EACH TAB PO PRN ×2 (00:55→08:32)
[2020-01-25 05:39] VITALS: PULSE 89
[2020-01-25 07:23] LABS: Glucose,Whole Blood 122 mg/dL (75-99)
[2020-01-25] MEDS: INSULIN ASPART (NovoLOG) 100 UNIT/ML VIAL SQ SCH ×2 (07:34→14:03)
[2020-01-25] MEDS: GABAPENTIN 300 MG CAP PO SCH (08:33)
[2020-01-25] MEDS: DULoxetine HCL 60 MG CAPSULE.DR PO SCH (08:33)
[2020-01-25] MEDS: PANTOPRAZOLE 40 MG TABLET PO SCH (08:33)
[2020-01-25] MEDS: ASPIRIN 81 MG PO SCH (08:33)
[2020-01-25] MEDS: predniSONE 20 MG TAB PO SCH (08:33)
[2020-01-25] MEDS: SENNOSIDES-DOCUSATE SODIUM 1 EACH TAB PO SCH (08:33)
[2020-01-25] MEDS: FINASTERIDE 5 MG TAB PO SCH (08:33)
[2020-01-25] MEDS: HEPARIN SODIUM,PORCINE 5,000 UNIT/ML 1 ML VIAL SQ SCH (08:33)
[2020-01-25] MEDS: LACTATED RINGERS 1,000 ML IV SCH (08:34)
[2020-01-25] MEDS: INSULIN DETEMIR (LEVEMIR) 100 UNIT/ML SYR SQ SCH (08:34)
[2020-01-25] MEDS ORDERED: predniSONE 20 MG TAB PO SCH (09:00)
--- NOTE | 2020-01-25 10:19 | P.DS ---
Providers Date of admission: 01/21/20 14:14 Expected date of discharge: 01/25/20 Attending physician: Gustavo Butler MD Consults: 01/20/20 10:17 Consult Physician Routine Consulting Provider: Bereket Chase Consult Reason/Comments: Neuropathy Do you want consulting provider notified?: Yes 01/20/20 17:07 Consult Physician Urgent Consulting Provider: Desiree Brannon Consult Reason/Comments: Spinal stenosis with myopathy Do you want consulting provider notified?: Yes Primary care physician: Elle Butler [facility] Course: Final Diagnoses: Generalized weakness with possible diabetic neuropathy.Severe degenerative disc disease, spinal stenosis, multilevel foraminal encroachment, severe cervical myelopathy C4, 5 and 6 with significant myelomalacia within cervical spinal cord per MRI. Status post anterior cervical decompression with discectomy fusion C4 5 C5 6 Acute kidney injury, prerenal azotemia secondary to dehydration from prolonged immobility, improved with IV fluids Hypertension Diabetes mellitus type 2, hyperglycemic, steroid-induced, improving Peripheral neuropathy, diabetic Hospital course:Davis Wilde is an 84 yo M with PMH of T2DM, HTN, HLD who presented to [facility] with worsening bilateral leg numbness and weakness. He reports he has been experiencing gradual and worsening lower extremity weakness but last week after his BP medications were adjusted his symptoms worsened. He feels his upper extremity strength is also diminished. He has not been able to ambulate as he cannot feel his feet and does not use any mobility aids at home. On presentation his vitals were stable, labs with Cr 1.4, glucose 190, CXR and EKG clear. 01/20/2020 gabapentin added to med regimen yesterday with minimal improvement reported in neuropathy today. Reports this on going weakness has been present for approximately one month. Unable to hold cup or utensils up. Continues on IV fluid hydration, creatinine 1.5. Vague historian, reports urinary retention, possible stricture, suspect BPH? Required straight cath during the night, currently voiding well. 01/21/2020 evaluated by both neurology and orthopedic spine surgery with recommendations noted and appreciated. C-spine MRI reported severe degenerative disc disease, spinal stenosis, multilevel foraminal encroachment, severe cervical myelopathy C4, 5 and 6 with significant myelomalacia within cervical spinal cord. IV steroids initiated yesterday with cervical decompression with discectomy recommended. 01/22/2020 VSS, Labs pending. Elevated blood sugars, up into the 250s this mo rning, as high as 300 during the night. Maintained on IV steroids. Weakness persists in all extremities, more so in the upper extremities with minimal improvement.Patient reports neck mobility better, able to move his head a little bit more freely from [id number]. Positive bowel movement .Consuming lear liquid breakfast , then NPO, patient is scheduled for cervical decompression and fusion with orthopedic spine surgery today. Denies chest pain, palpitations or shortness of breath. Significant clinical improvement. Patient will be discharged today to [facility] subacute rehab in a stable condition with guarded prognosis, pending final DC recommendations, steroids and clearance from orthopedic spine. The impression and plan of care has been dictated as directed. : I performed a history and examination of this patient, discussed the same with the dictator. I agree with the dictator's note ,documented as a scribe. Any additional findings or plans will be noted. Patient Condition at Discharge: Stable Plan - Discharge Summary Discharge Rx Participant: No New Discharge Prescriptions: New INSULIN LISPRO (HumaLOG) [humaLOG] 0 unit SQ ACHS #1 vial Benzocaine/Menthol Lozeng [Cepacol lozenge] 1 each MUCOUS MEM Q4HR PRN lozenge PRN Reason: Sore Throat Ipratropium-Albuterol Nebulize [Duoneb 0.5 mg-3 mg/3 ml Soln] 3 ml INHALATION RT-QID PRN ml PRN Reason: Shortness Of Breath Or Wheezing Tamsulosin [Flomax] 0.4 mg PO PC-SUPPER cap.er.24h Insulin Detemir (Levemir) [Levemir] 20 unit SQ DAILY@0700 syr Gabapentin [Neurontin] 300 mg PO BID #6 cap Sennosides-Docusate Sodium [Senokot-S] 1 each PO DAILY tab Acetaminophen Tab [Tylenol] 650 mg PO Q6HR PRN tab PRN Reason: Fever And/ Or Pain HYDROcodone/APAP 7.5-325MG [[place] 7.5-325] 1 tab PO Q4H PRN 3 Days #18 tab PRN Reason: Pain Enoxaparin [Lovenox] 40 mg SQ DAILY #7 syringe predniSONE [Deltasone] 20 mg PO DAILY tab Continue buPROPion HCL [Wellbutrin XL] 150 mg PO DAILY Finasteride [Proscar] 5 mg PO DAILY Simvastatin [Zocor] 40 mg PO HS Omeprazole 40 mg PO AC-BRKFST Ergocalciferol [Vitamin D2 (DRISDOL)] 50,000 unit PO WE Aspirin [Adult Low Dose Aspirin EC] 81 mg PO DAILY sitaGLIPtin [Januvia] 50 mg PO DAILY Repaglinide [Prandin] 2 mg PO TID Lisinopril [Prinivil] 10 mg PO DAILY Ipratropium [place] 0.06%Nasal [Atrovent Nasal 0.06%] 1 spray EA NOSTRIL DAILY DULoxetine HCL [Cymbalta] 60 mg PO DAILY Discontinued traMADol HCL [Ultram] 50 mg PO Q6H PRN PRN Reason: Pain Sulfamethox-Tmp 800-160Mg [Bactrim DS 800-160 mg] 1 tab PO Q12HR SILVER sulfADIAZINE Cream [Silvadene 1% Cream] 1 applic TOPICAL DAILY Clotrimazole/Betameth Cream [Lotrisone] 1 applic TOPICAL DAILY Discharge Medication List Aspirin [Adult Low Dose Aspirin EC] 81 mg PO DAILY 06/22/15 [History] Ergocalciferol [Vitamin D2 (DRISDOL)] 50,000 unit PO WE 06/22/15 [History] Finasteride [Proscar] 5 mg PO DAILY 06/22/15 [History] Omeprazole 40 mg PO AC-BRKFST 06/22/15 [History] Simvastatin [Zocor] 40 mg PO HS 06/22/15 [History] buPROPion HCL [Wellbutrin XL] 150 mg PO DAILY 06/22/15 [History] DULoxetine HCL [Cymbalta] 60 mg PO DAILY 01/19/20 [History] Ipratropium [place] 0.06%Nasal [Atrovent Nasal 0.06%] 1 spray EA NOSTRIL DAILY 01/19/20 [History] Lisinopril [Prinivil] 10 mg PO DAILY 01/19/20 [History] Repaglinide [Prandin] 2 mg PO TID 01/19/20 [History] sitaGLIPtin [Januvia] 50 mg PO DAILY 01/19/20 [History] Acetaminophen Tab [Tylenol] 650 mg PO Q6HR PRN tab 01/25/20 [Rx] Benzocaine/Menthol Lozeng [Cepacol lozenge] 1 each MUCOUS MEM Q4HR PRN lozenge 01/25/20 [Rx] Enoxaparin [Lovenox] 40 mg SQ DAILY #7 syringe 01/25/20 [Rx] Gabapentin [Neurontin] 300 mg PO BID #6 cap 01/25/20 [Rx] HYDROcodone/APAP 7.5-325MG [[place] 7.5-325] 1 tab PO Q4H PRN 3 Days #18 tab 1 [Rx] INSULIN LISPRO (HumaLOG) [humaLOG] 0 unit SQ ACHS #1 vial 01/25/20 [Rx] Insulin Detemir (Levemir) [Levemir] 20 unit SQ DAILY@0700 syr 01/25/20 [Rx] Ipratropium-Albuterol Nebulize [Duoneb 0.5 mg-3 mg/3 ml Soln] 3 ml INHALATION RT-QID PRN ml 01/25/20 [Rx] Sennosides-Docusate Sodium [Senokot-S] 1 each PO DAILY tab 01/25/20 [Rx] Tamsulosin [Flomax] 0.4 mg PO PC-SUPPER cap.er.24h 01/25/20 [Rx] predniSONE [Deltasone] 20 mg PO DAILY tab 01/25/20 [Rx] Follow up Appointment(s)/Referral(s): Elle Butler DO [Primary Care Provider] - 1 Week (After discharge from subacute rehab) Desiree Brannon DO [Doctor of Osteopathic Medicine] - 1 Week Patient Instructions/Handouts: Gabapentin (By mouth), Insulin Lispro (By injection) Activity/Diet/Wound Care/Special Instructions: Steroids-taper as per orthopedic spine. Confirm follow-up appointment with orthopedic spine. [facility] Discharge Disposition: TRANSFER TO SNF/ECF
--- NOTE | 2020-01-25 10:54 | P.PN ---
Progress Note - Text Progress Note Date: 01/25/20 Orthopedic Spine: History of present illness: Patient is a pleasant 84-year-old male who is seen at the bedside following anterior cervical decompression and fusion performed on 01/22/2020. Patient states they are doing ok postsurgically. He does continue to have difficulty with dexterity of his hands bilaterally as well as ambulation. He is known have cervical myelomalacia and cervical myelopathy. His cervical pain is well- controlled. He continues to use a soft cervical collar for comfort. He does have some soreness in his throat. He has been able to eat without significant difficulty. Currently does not complain of nausea, vomiting, fever, or chills. Patient states pain has been adequately controlled. Patient is eating and voiding freely without difficulty. He is planned for discharge today per medicine to [facility]. He does feel he is ready for discharge. Physical Exam Cervical Fusion: Status post surgical day number 3 Patient is awake, alert, and oriented 3 Vital signs stable Good chest excursion with deep inspiration and expiration Patient is able to perform some active range of motion with biceps and triceps bilaterally Patient is able to perform some shoulder abduction bilaterally with weakness with the right being weaker than the left Significant weakness with senior analysis specialist bilaterally worse on the right than the left Patient does have difficulty with performing activities at the bedside including grabbing items due to difficulty with dexterity Dressing is clean, dry, and intact; no erythema, purulence, or signs of infection Patient is wearing soft cervical collar Assessment: Status post C4-5 and C5-6 anterior cervical decompression and fusion Cervical myelopathy Cervical myelomalacia Upper extremity weakness Lower extremity weakness Severe spinal cervical stenosis at C4-5 and C5-6 Central cord syndrome Diabetes mellitus with peripheral neuropathy Hypertension Plan: 1. Ambulate as tolerated; work with Physical Therapy to increase mobilization; these have significant difficulty with mobilization. He is encouraged to work with physical therapy as well as using a walking aid to aid in ambulation 2. Continue pain control; patient is given a prescription for [place] 7.5 mg/325 mg 1 tab every 6 hours as needed for pain, dispense #28 3. Patient is also given a prescription for prednisone 10 mg twice a day 4 days then 10 mg daily for 4 days; dispensed 12 tablets 4. Patient may shower with Optifoam dressing; patient may remove dressing in 2 days and shower without a dressing at that time 5. Medical management can continue to manage patient for patient's other medical diagnoses 6. Patient is clear for discharge from orthopedic spine standpoint; patient is scheduled for discharge today to [facility]; Following discharge, patient can follow-up with Baltazar Tripathi PA-C or Dr. Daniele Brannon at [facility] in 2-3 weeks following discharge
[2020-01-25 11:17] LABS: Glucose,Whole Blood 200 mg/dL (75-99)
[2020-01-25 11:53] VITALS: BP 124/78; RESP 15; TEMP 97.8
== END 2020-01-25 15:43 | DRG 472 ==
LOC: EC 03:31 → 6NMEDSUR 07:05 → OBSVTOIN 01-21 14:14
PROVIDERS: ADMIT Family Medicine; ATTEND Family Medicine
PROC: 0RT30ZZ Resection of Cervical Vertebral Disc, Open Approach (ICD-10-PCS; principal; 2020-01-22 17:00)
PROC: 0RG20A0 Fusion of 2 or more Cervical Vertebral Joints with Interbody Fusion Device, Anterior Approach, Anterior Column, Open Approach (ICD-10-PCS; principal; 2020-01-22 17:00)
PROC: 0RG2070 Fusion of 2 or more Cervical Vertebral Joints with Autologous Tissue Substitute, Anterior Approach, Anterior Column, Open Approach (ICD-10-PCS; principal; 2020-01-22 17:00)
DX: M50.021 Cervical disc disorder at C4-C5 level with myelopathy (principal); G95.89 Other specified diseases of spinal cord; N17.9 Acute kidney failure, unspecified; S14.129A Central cord syndrome at unspecified level of cervical spinal cord, initial encounter; E11.42 Type 2 diabetes mellitus with diabetic polyneuropathy; M48.02 Spinal stenosis, cervical region; E66.01 Morbid (severe) obesity due to excess calories; E11.65 Type 2 diabetes mellitus with hyperglycemia; I11.9 Hypertensive heart disease without heart failure; E86.0 Dehydration; I44.0 Atrioventricular block, first degree; I49.1 Atrial premature depolarization; E78.5 Hyperlipidemia, unspecified; N48.83 Acquired buried penis; N40.1 Benign prostatic hyperplasia with lower urinary tract symptoms; N39.498 Other specified urinary incontinence; R33.8 Other retention of urine; R20.8 Other disturbances of skin sensation; R20.2 Paresthesia of skin; K21.9 Gastro-esophageal reflux disease without esophagitis; T38.0X5A Adverse effect of glucocorticoids and synthetic analogues, initial encounter; I87.8 Other specified disorders of veins; M15.9 Polyosteoarthritis, unspecified; R29.6 Repeated falls; R26.89 Other abnormalities of gait and mobility; Z68.38 Body mass index [BMI] 38.0-38.9, adult; Z79.84 Long term (current) use of oral hypoglycemic drugs; Z79.82 Long term (current) use of aspirin; Z79.899 Other long term (current) drug therapy; Z88.0 Allergy status to penicillin; Z87.440 Personal history of urinary (tract) infections; Z87.442 Personal history of urinary calculi; Z96.643 Presence of artificial hip joint, bilateral; Z96.653 Presence of artificial knee joint, bilateral; Z85.828 Personal history of other malignant neoplasm of skin; Z98.42 Cataract extraction status, left eye; Z98.41 Cataract extraction status, right eye; Z96.1 Presence of intraocular lens; Z86.010 Personal history of colon polyps; Z87.19 Personal history of other diseases of the digestive system; Z98.890 Other specified postprocedural states; Z82.5 Family history of asthma and other chronic lower respiratory diseases; Z81.2 Family history of tobacco abuse and dependence
CPT/HCPCS: 36415; 70030; 71045; 71046; 72020; 72141; 80048; 80053; 81003; 82550; 82607; 82746; 83036; 83605; 83735; 84165; 84207; 84443; 84484; 85025; 85610; 85730; 86038; 86334; 93005; 93306; 96372; 99285